=== PATIENT | male | born 1950 | race African-American/Black ===

== ENCOUNTER 2017-06-10 11:35 | Inpatient (IN) | payer MEDICARE, OTHER ==
[~2017-06-10] VITALS: Ht 177.8 cm; Wt 105.0 kg
[2017-06-10] VITALS (10 sets, daily range): BP systolic 113–193; BP diastolic 52–79; PULSE 100–123; RESP 15–30; TEMP 100.2–101.7; O2SAT 97–100
[~2017-06-10 11:35] MED LIST: DARV PO; GLUCTAB; IBUP-232 PO; METH750T2 PO; PHEN12.5; SULF1TAB47; Z.0.UNKNOWN
[2017-06-10] MEDS ORDERED: ACETAMINOPHEN 325 MG TAB PO ONE (12:00)
[2017-06-10] MEDS: SODIUM CHLOR 0.9% 1000 ML INJ 1,000 ML IV SCH ×5 (12:17→20:07)
--- NOTE | 2017-06-10 12:25 | PD ---
HPI Chief Complaint: Fever Time Seen by Provider: 11:44 Travel History International Travel<30 days: No Contact w/Intl Traveler<30days: No Traveled to known affect area: No History of Present Illness HPI 67-year-old male presents via [facility] with fever and complaint of "not feeling good " since this morning. Says he also felt a little weak. EMS reports a 102.0. EMS states the patient was walking around outside of his house and fell. Patient states he "fell out." Patient states he didn't faint or lose consciousness. Denies hitting his head. Denies neck pain or back pain. He denies headache. He denies chest pain, shortness breath, abdominal pain, vomiting, dysuria, change in stool. History of hypertension and diabetes. Denies anticoagulants. No known allergies. Has no other medical complaints. No other modifying factors or associated signs and symptoms. PFSH Past Medical History Hx Anticoagulant Therapy: No Arthritis: No Asthma: No Autoimmune Disease: No Heart Rhythm Problems: No Cardiovascular Problems: No High Cholesterol: No Chemotherapy: No Chest Pain: Yes Congestive Heart Failure: No COPD: No Cerebrovascular Accident: No Diabetes: Yes Diminished Hearing: No GERD: No Hiatal Hernia: No Hypertension: Yes Kidney Stones: No Respiratory: No Myocardial Infarction: No Renal Failure: No Seizures: No Thyroid Disease: No Ulcer: No ?: Not Past Surgical History Pacemaker: No Social History Alcohol Use: No Tobacco Use: Yes (1/2 PPD) Substance Use: No Allergies-Medications (Allergen,Severity, Reaction): Coded Allergies: No Known Allergies (Verified , 06/10/17) Reported Meds & Prescriptions Reported Meds & Active Scripts Active Reported Glipizide 10 Mg Tab 20 Mg PO DAILY Take 30 minutes before a meal Review of Systems Except as stated in HPI: all other systems reviewed are Neg Physical Exam Narrative GENERAL: Well-nourished, well-developed black male patient, in no acute distress ; febrile, ill-appearing SKIN: Warm and dry. No rash. HEAD: Atraumatic. Normocephalic. EYES: Pupils equal and round. No scleral icterus. No injection or drainage. No raccoon eyes. No orbital tenderness on palpation bilaterally. ENT: Mucosa pink and moist. No erythema or exudates. No uvular edema. No uvular , palatal, or tonsillar deviation. Airway patent. EARS: Bilateral pinnae and external canals appear within normal limits. Bilateral tympanic membranes without erythema, dullness or perforation. NECK: Trachea midline. No lymphadenopathy. CARDIOVASCULAR: Regular rate and rhythm. No murmur appreciated. RESPIRATORY: No accessory muscle use. Clear to auscultation. Breath sounds equal bilaterally. No retractions or tachypnea. GASTROINTESTINAL: Abdomen soft, non-tender, nondistended. Hepatic and splenic margins not palpable. Bowel sounds are active 4 quadrants. MUSCULOSKELETAL: No obvious deformities. No clubbing. No cyanosis. No edema. NEUROLOGICAL: Awake and alert. Oriented 3. No obvious cranial nerve deficits. Motor grossly within normal limits. Normal speech. No midline drift. Moves all extremities. 5/5 strength to all extremities. PSYCHIATRIC: Appropriate mood and affect; insight and judgment normal. Data Data Last Documented VS Vital Signs Date Time Temp Pulse Resp B/P (MAP) Pulse Ox O2 Delivery O2 Flow Rate FiO2 06/10/17 14:00 118 15 133/61 (85) 97 Room Air 06/10/17 12:00 101.7 Orders Orders Electrocardiogram (06/10/17 11:53) Complete Blood Count With Diff (06/10/17 11:53) Comprehensive Metabolic Panel (06/10/17 11:53) Lactic Acid Sepsis Protocol (06/10/17 11:53) Urinalysis - C+S If Indicated (06/10/17 11:53) Influenzae A/B Antigen (06/10/17 11:53) Blood Culture (06/10/17 11:53) Chest, Single Ap (06/10/17 11:53) Blood Glucose (06/10/17 11:53) Ecg Monitoring (06/10/17 11:53) Iv Access Insert/Monitor (06/10/17 11:53) Oximetry (06/10/17 11:53) Oxygen Administration (06/10/17 11:53) Prothrombin Time / Inr (Pt) (06/10/17 11:53) Act Partial Throm Time (Ptt) (06/10/17 11:53) Sodium Chlor 0.9% 1000 Ml Inj (Ns 1000 M (06/10/17 11:53) Magnesium (Mg) (06/10/17 11:53) Ckmb (Isoenzyme) Profile (06/10/17 11:53) Troponin I (06/10/17 11:53) Acetaminophen (Tylenol) (06/10/17 12:00) Ct Brain W/O Iv Contrast(Rout) (06/10/17 ) CKMB (06/10/17 12:10) CKMB% (06/10/17 12:10) Ct Facial Bones W/O Iv Cont (06/10/17 ) Vancomycin Inj (Vancomycin Inj) (06/10/17 13:15) Piperacil-Tazo 3.375 Gm Premix (Zosyn 3. (06/10/17 13:15) Ciprofloxacin 400 Mg Premix (Cipro 400 M (06/10/17 14:25) Admit Order (Ed Use Only) (06/10/17 14:29) Labs Laboratory Tests Test 06/10/17 12:10 06/10/17 12:16 White Blood Count 20.8 TH/MM3 Red Blood Count 5.15 MIL/MM3 Hemoglobin 16.0 GM/DL Hematocrit 47.7 % Mean Corpuscular Volume 92.6 FL Mean Corpuscular Hemoglobin 31.0 PG Mean Corpuscular Hemoglobin Concent 33.5 % Red Cell Distribution Width 13.8 % Platelet Count 124 TH/MM3 Mean Platelet Volume 10.7 FL Neutrophils (%) (Auto) 78.6 % Lymphocytes (%) (Auto) 9.9 % Monocytes (%) (Auto) 9.8 % Eosinophils (%) (Auto) 1.3 % Basophils (%) (Auto) 0.4 % Neutrophils # (Auto) 16.3 TH/MM3 Lymphocytes # (Auto) 2.1 TH/MM3 Monocytes # (Auto) 2.0 TH/MM3 Eosinophils # (Auto) 0.3 TH/MM3 Basophils # (Auto) 0.1 TH/MM3 CBC Comment DIFF FINAL Differential Comment Prothrombin Time 11.2 SEC Prothromb Time International Ratio 1.0 RATIO Activated Partial Thromboplast Time 25.3 SEC Blood Urea Nitrogen 15 MG/DL Creatinine 1.75 MG/DL Random Glucose 178 MG/DL Total Protein 7.2 GM/DL Albumin 3.4 GM/DL Calcium Level 9.2 MG/DL Magnesium Level 1.8 MG/DL Alkaline Phosphatase 60 U/L Aspartate Amino Transf (AST/SGOT) 12 U/L Alanine Aminotransferase (ALT/SGPT) 18 U/L Total Bilirubin 0.7 MG/DL Sodium Level 138 MEQ/L Potassium Level 3.3 MEQ/L Chloride Level 104 MEQ/L Carbon Dioxide Level 26.5 MEQ/L Anion Gap 8 MEQ/L Estimat Glomerular Filtration Rate 48 ML/MIN Total Creatine Kinase 211 U/L Creatine Kinase MB 2.4 NG/ML Troponin I LESS THAN 0.02 NG/ML Lactic Acid Level 2.8 mmol/L MDM Medical Decision Making Medical Screen Exam Complete: Yes Emergency Medical Condition: Yes Medical Record Reviewed: Yes Differential Diagnosis Sepsis, influenza, pneumonia Narrative Course 67-year-old male presents via [facility] after a fall and suspected sepsis. Patient' s temperature per EMS was 102.0. Patient is tachycardic. Patient has no complaints except for that he didn't feel well and felt weak when he woke up this morning. IV site obtained. Septic workup ordered. CT head and chest x- ray ordered. EKG with sinus tachycardia. Tylenol and normal saline bolus ordered. 1306: WBC 20.8. Platelet count 24. Coags unremarkable. Lactic acid 2.8. Negative for influenza. 1 g vancomycin and Zosyn 3.[address] head concludes: Last [address] 06/10/17 0000 Signed Impressions: Service Date/Time: May 12:19 - CONCLUSION: 1. No acute intracranial abnormality. 2. Opacification of the right maxillary sinus. There is concern for fracture the inferior aspect of the right orbit. CT imaging of the facial bones is warranted. Ramos Ortega MD CT facial bones ordered. 1326: Chest x-ray was no acute findings. Call placed to TERESA for patient to be admitted. 1430: I spoke with TERESA Givens; report given and patient will be admitted. Physician Communication Physician Communication TERESA Huerta Diagnosis Primary Impression: Sepsis Qualified Codes: A41.9 - Sepsis, unspecified organism Admitting Information Admitting Physician Requests: Admit Valerie Pitt Jun 10, 2017 12:25
[2017-06-10 12:31] LABS: AUTOMATED NEUTROPHIL # 16.3 TH/MM3 (1.8-7.7); BASOPHIL # 0.1 TH/MM3 (0-0.2); BASOPHIL % 0.4 % (0.0-2.0); EOSINOPHIL # 0.3 TH/MM3 (0-0.4); EOSINOPHIL % 1.3 % (0.0-4.0); HEMATOCRIT 47.7 % (39.0-51.0); HEMO FLAGS DIFF FINAL; LYMPH % 9.9 % (9.0-44.0); LYMPHOCYTE # 2.1 TH/MM3 (1.0-4.8); MEAN CELL VOLUME 92.6 FL (80.0-100.0); MEAN CORPUSCULAR HGB CONC 33.5 % (32.0-36.0); MONO % 9.8 % (0.0-8.0); NEUT % 78.6 % (16.0-70.0); PLATELET COUNT 124 TH/MM3 (150-450); RED BLOOD COUNT 5.15 MIL/MM3 (4.50-5.90); RED CELL DISTRIBUTION WIDTH 13.8 % (11.6-17.2); WHITE BLOOD COUNT 20.8 TH/MM3 (4.0-11.0)
[2017-06-10 12:44] LABS: PROTHROMBIN TIME - PATIENT 11.2 SEC (9.8-11.6)
[2017-06-10 12:46] LABS: ALT (GPT) 18 U/L (12-78); ANION GAP 8 MEQ/L (5-15); AST (GOT) 12 U/L (15-37); BICARBONATE 26.5 MEQ/L (21.0-32.0); BLOOD UREA NITROGEN 15 MG/DL (7-18); CHLORIDE 104 MEQ/L (98-107); GLOMERULAR FILTRATION RATE 48 ML/MIN (>89); MAGNESIUM 1.8 MG/DL (1.5-2.5); POTASSIUM 3.3 MEQ/L (3.5-5.1); SODIUM (NA) 138 MEQ/L (136-145)
[2017-06-10 12:47] LABS: APTT (PATIENT) 25.3 SEC (24.3-30.1)
[2017-06-10 12:51] LABS: ALKALINE PHOSPHATASE 60 U/L (45-117); CREATINE KINASE 211 U/L (39-308); TOTAL BILIRUBIN ADULT 0.7 MG/DL (0.2-1.0)
--- NOTE | 2017-06-10 12:59 | RADRPT ---
EXAM DATE/TIME: 06/10/2017 12:19 [facility] COMPARISON: No previous studies available for comparison. INDICATIONS : Trauma, fall. RADIATION DOSE: 48.66 CTDIvol (mGy) MEDICAL HISTORY : Hypertension. Diabetes mellitus type 2. SURGICAL HISTORY : None. ENCOUNTER: Initial ACUITY: 1 day PAIN SCALE: 0/10 LOCATION: cranial TECHNIQUE: Multiple contiguous axial images were obtained of the head. Using automated exposure control and adj ustment of the mA and/or kV according to patient size, radiation dose was kept as low as reasonably a chievable to obtain optimal diagnostic quality images. DICOM format image data is available electro nically for review and comparison. FINDINGS: CEREBRUM: The ventricles are normal for age. No evidence of midline shift, mass lesion, hemorrhage or acute in farction. No extra-axial fluid collections are seen. POSTERIOR FOSSA: The cerebellum and brainstem are intact. The 4th ventricle is midline. The cerebellopontine angle i s unremarkable. EXTRACRANIAL: The visualized portion of the orbits is intact. There is opacification of the right maxillary sinus. SKULL: The calvaria is intact. No evidence of skull fracture. The exam is concern for fracture the inferior aspect of the right orbit. CONCLUSION: 1. No acute intracranial abnormality. 2. Opacification of the right maxillary sinus. There is concern for fracture the inferior aspect of t he right orbit. CT imaging of the facial bones is warranted. Ramos Ortega MD on June 10, 2017 at 12:46 Board Certified Radiologist. This report was verified electronically.
[2017-06-10 13:05] LABS: CKMB 2.4 NG/ML (0.5-3.6)
--- NOTE | 2017-06-10 13:11 | RADRPT ---
EXAM DATE/TIME: 06/10/2017 12:55 [facility] COMPARISON: No previous studies available for comparison. INDICATIONS : Shortness of breath. MEDICAL HISTORY : Hypertension. Diabetes mellitus type II. Smoker. SURGICAL HISTORY : None. ENCOUNTER: Initial ACUITY: 1 day PAIN SCORE: 0/10 LOCATION: Bilateral chest FINDINGS: A single view of the chest demonstrates the lungs to be symmetrically aerated without evidence of mas s, infiltrate or effusion. The cardiomediastinal contours are unremarkable. Osseous structures are intact. CONCLUSION: No acute disease. Kwaku Vizcaino MD on June 10, 2017 at 13:09 Board Certified Radiologist. This report was verified electronically.
[2017-06-10] MEDS ORDERED: PIPERACIL-TAZO 3.375 GM PREMIX 50 ML IV ONE (13:15)
[2017-06-10] MEDS ORDERED: VANCOMYCIN INJ 1,000 MG in SODIUM CHLOR 0.9% 250 ML INJ 250 ML IV ONE (13:15)
[2017-06-10 14:24] LABS: LACTIC ACID GHOST NOT REPORTABLE
[2017-06-10] MEDS ORDERED: CIPROFLOXACIN 400 MG PREMIX 200 ML IV STA (14:25)
[2017-06-10] MEDS ORDERED: ONDANSETRON HCL 4 MG/2 ML VIAL IVP PRN (14:45)
[2017-06-10] MEDS ORDERED: BISACODYL 10 MG SUPP RECTAL PRN (14:45)
[2017-06-10] MEDS ORDERED: GLUCAGON 1 MG/ML VIAL OTHER PRN (14:45)
[2017-06-10] MEDS ORDERED: DEXTROSE 50% IN WATER 50 ML VIAL(D50) IV PUSH PRN (14:45)
[2017-06-10] MEDS ORDERED: SENNOSIDES 8.6 MG TAB PO PRN (14:45)
[2017-06-10] MEDS ORDERED: MORPHINE SULFATE 4 MG/ML INJ IV PUSH PRN (14:45)
[2017-06-10] MEDS ORDERED: NALOXONE HCL 0.4 MG/ML AMP IV PUSH PRN (14:45)
[2017-06-10] MEDS ORDERED: LACTULOSE SYRUP 20 GM/30 ML CUP PO PRN (14:45)
[2017-06-10] MEDS ORDERED: SODIUM CHLORIDE 0.9% FLUSH 10 ML FLUSH IV FLUSH PRN (14:45)
[2017-06-10] MEDS ORDERED: ACETAMINOPHEN 325 MG TAB PO PRN (14:45)
[2017-06-10] MEDS ORDERED: GLIP10TA6 PO (14:49)
--- NOTE | 2017-06-10 15:09 | RADRPT ---
EXAM DATE/TIME: 06/10/2017 14:20 [facility] COMPARISON: No previous studies available for comparison. INDICATIONS : Trauma, fall. RADIATION DOSE: 55.79 CTDIvol (mGy) MEDICAL HISTORY : Cardiovascular disease. Hypertension. Chronic obstructive pulmonary disease. SURGICAL HISTORY : None. ENCOUNTER: Initial ACUITY: 1 day PAIN SCORE: 0/10 LOCATION: facial TECHNIQUE: Volumetric scanning of the facial bones was performed. Using automated exposure control and adjustme nt of the mA and/or kV according to patient size, radiation dose was kept as low as reasonably achiev able to obtain optimal diagnostic quality images. DICOM format image data is available electronicall y for review and comparison. FINDINGS: ORBITS: The orbital and infraorbital osseous structures are intact. The retroconal structures have a normal configuration. No radiopaque foreign bodies are seen. NASAL BONE: The nasal bone and maxillary spine are intact ZYGOMATIC ARCHES: Symmetric without evidence of fracture. SINUSES: Near-complete opacification of the right maxillary sinus with diffuse thickening of the maxillary sin [place] suggesting chronic sinusitis. Bone erosion of the medial wall. NASAL CAVITY: The nasal septum is intact and midline. The lacrimal ducts are intact. SOFT TISSUES: Within normal limits. INTRACRANIAL: No intracranial air seen. CONCLUSION: 1. Severe opacification of the right maxillary sinus with thickening of the right maxillary sinus wal ls suggesting chronic sinus disease. Erosion of the medial wall of the right maxillary sinus. 2. No evidence of fracture. Brian Mendoza MD on June 10, 2017 at 15:03 Board Certified Radiologist. This report was verified electronically.
--- NOTE | 2017-06-10 15:56 | HHI.HP ---
[facility] [place] [facility] [place] Admission Diagnosis SEPSIS Diagnoses: Travel History International Travel<30 Days: No Contact w/Intl Traveler <30 Da: No Traveled to Known Affected Are: No Past Family Social History Allergies: Coded Allergies: No Known Allergies (Verified , 06/10/17) Physical Exam Result Diagram: 06/10/17 1210 06/10/17 1210 Caprini VTE Risk Assessment Caprini Risk Assessment Model Point Value = 1 Point Value = 2 Point Value = 3 Point Value = 5 Age 41-60 Minor surgery BMI > 25 kg/m2 Swollen legs Varicose veins or History of unexplained or recurrent spontaneous Oral contraceptives or hormone replacement Sepsis (< 1 month) Serious lung disease, including pneumonia (< 1 month) Abnormal pulmonary function Acute myocardial infarction Congestive heart failure (< 1 month) History of inflammatory bowel disease Medical patient at bed rest Age 61-74 Arthroscopic surgery Major open surgery (> 45 min) Laparoscopic surgery (> 45 min) Malignancy Confined to bed (> 72 hours) Immobilizing plaster cast Central venous access Age >= 75 History of VTE Family history of VTE Factor V Leiden Prothrombin [id number] Lupus anticoagulant Anticardiolipin antibodies Elevated serum homocysteine Heparin-induced thrombocytopenia Other congenital or acquired thrombophilia Stroke (< 1 month) Elective arthroplasty Hip, pelvis, or leg fracture Acute spinal cord injury (< 1 month) Prophylaxis Regimen Total Risk Factor Score Risk Level Prophylaxis Regimen 0-1 Low Early ambulation 2 Moderate Order ONE of the following: *Sequential Compression Device (SCD) *Heparin 5000 units SQ BID 3-4 Higher Order ONE of the following medications: *Heparin 5000 units SQ TID *Enoxaparin/Lovenox 40 mg SQ daily (WT < 150 kg, CrCl > 30 mL/min) *Enoxaparin/Lovenox 30 mg SQ daily (WT < 150 kg, CrCl > 10-29 mL/min) *Enoxaparin/Lovenox 30 mg SQ BID (WT < 150 kg, CrCl > 30 mL/min) AND/OR *Sequential Compression Device (SCD) 5 or more Highest Order ONE of the following medications: *Heparin 5000 units SQ TID (Preferred with Epidurals) *Enoxaparin/Lovenox 40 mg SQ daily (WT < 150 kg, CrCl > 30 mL/min) *Enoxaparin/Lovenox 30 mg SQ daily (WT < 150 kg, CrCl > 10-29 mL/min) *Enoxaparin/Lovenox 30 mg SQ BID (WT < 150 kg, CrCl > 30 mL/min) AND *Sequential Compression Device (SCD) Physician Certification Order for Inpatient Services The services are ordered in accordance with Medicare regulations or non- Medicare payer requirements, as applicable. In the case of services not specified as inpatient-only, they are appropriately provided as inpatient services in accordance with the 2-midnight benchmark. days is the estimated time the patient will need to remain in the hospital, assuming treatment plan goals are met and no additional complications. Rika Lantigua Jun 10, 2017 15:56 Bakari Winters MD Jun 10, 2017 16:15
[2017-06-10] MEDS ORDERED: POTASSIUM CHLORIDE 20 MEQ CONTROLLED RELEASE TAB PO ONE (16:00)
--- NOTE | 2017-06-10 16:18 | HHI.HP ---
HPI Service [facility] Hospitalists Primary Care Physician [facility] Admission Diagnosis SEPSIS Diagnoses: Chief Complaint: Fever Weakness Travel History International Travel<30 Days: No Contact w/Intl Traveler <30 Da: No Traveled to Known Affected Are: No Sepsis Criteria SIRS Criteria (2 or more): Temp > 100.9 or < 96.8, Heart rate over 90, WBC > 62912, < 4000 or > 10% bands Sepsis Criteria (SIRS+source): Infect source susp/known Severe Sepsis (+one): Lactate >2, Acute Oliguria/Renal Failure Criteria Outcome: Meets severe sepsis criteria History of Present Illness Written by Rika Lantigua PA-C acting as scribe for Dr. Winters on 06/10/17 at 16:16. This is a 67yo male with a PMHX significant for HTN and IDDM who presents to [facility] ED with complaints of fever and weakness. Patient reports sudden onset of "not feeling well" this morning with associated weakness and inability to walk resulting in fall. Patient denies any dizziness or lightheadedness prior to fall. He denies any loss of consciousness or injury to the head. Patient denies any fever or chills at home but EMS recorded a temperature of 102.0. Patient denies any recent illness, ill contacts or recent travel. He denies any cuts, bites or open sores. Patient denies any headache, runny nose or cough. Patient denies any recent change in medications. Patient denies any complaints of pain including no chest pain or abdominal pain. He denies any urinary urgency, frequency or dysuria. He denies any diarrhea. He denies any recent antibiotic use. Patient denies any bleeding. Patient denies any history of stroke or AR. In the ED, patient has temperature of 101.7, elevated white count of 20.8 and elevated lactic acid level of 2.8. He is tachycardiac with a HR of 112. Respiratory rate elevated at 30. Troponin was 0.02. Creatinine is elevated at 1.75. CXR shows no acute cardiopulmonary process. EKG with sinus tachycardia. CT head shows opacification of the right maxillary sinus and concern for fracture of the inferior aspect of the right orbit. Followup Facial CT shows severe opacification of the right maxillary sinus with thickening of the right maxillary sinus langford suggesting chronic sinus disease and erosion of the medial wall of the right maxillary sinus. No evidence of fracture. Review of Systems Except as stated in HPI: all other systems reviewed are Neg Past Family Social History Past Medical History HTN DM, insulin dependent Past Surgical History Patient denies any previous surgical history. Reported Medications Unknown blood pressure medication 80units of insulin, type unknown Glipizide 20mg po daily Allergies: Coded Allergies: No Known Allergies (Verified , 06/10/17) Active Ordered Medications Current Medications Medications (Trade) Dose Ordered Sig/Ishmael Route Start Time Stop Time Status Last Admin (D50w (Vial) Inj) 50 ml UNSCH PRN IV PUSH 06/10/17 14:45 (Glucagon Inj) 1 mg UNSCH PRN OTHER 06/10/17 14:45 (NovoLOG SUPPLEMENTAL SCALE) 1 ACHS SLIDING SCALE SQ 06/10/17 17:00 Sodium Chloride 1,000 ml @ 100 mls/hr Q10H IV 06/10/17 14:31 06/10/17 16:09 (NS Flush) 2 ml UNSCH PRN IV FLUSH 06/10/17 14:45 (NS Flush) 2 ml BID IV FLUSH 06/10/17 21:00 (Tylenol) 650 mg Q4H PRN PO 06/10/17 14:45 (Zofran Inj) 4 mg Q6H PRN IVP 06/10/17 14:45 (Tylenol) 650 mg Q6H PRN PO 06/10/17 14:45 ([place] 5-325 Mg) 1 tab Q4H PRN PO 06/10/17 14:45 ([place] 7.5-325 Mg) 1 tab Q4H PRN PO 06/10/17 14:45 (Morphine Inj) 1 mg Q3H PRN IV PUSH 06/10/17 14:45 (Narcan Inj) 0.4 mg UNSCH PRN IV PUSH 06/10/17 14:45 (Yumiko-Colace) 1 tab BID PO 06/10/17 21:00 (Senokot) 17.2 mg Q12H PRN PO 06/10/17 14:45 (Dulcolax Supp) 10 mg DAILY PRN RECTAL 06/10/17 14:45 (Lactulose Liq) 30 ml DAILY PRN PO 06/10/17 14:45 Family History Patient denies any FMHX of CVA or AR Social History Patient reports tobacco use of 1/2 ppd. Patient denies any alcohol consumption. Patient denies any illicit drug use. Physical Exam Vital Signs Vital Signs Date Time Temp Pulse Resp B/P (MAP) Pulse Ox O2 Delivery O2 Flow Rate FiO2 06/10/17 15:00 112 16 113/52 (72) 98 Room Air 06/10/17 14:00 118 15 133/61 (85) 97 Room Air 06/10/17 13:00 116 15 131/62 (85) 97 Room Air 06/10/17 12:17 100 Room Air 06/10/17 12:15 138/65 (89) Room Air 06/10/17 12:00 96 Room Air 06/10/17 12:00 101.7 123 30 193/79 (117) 98 Physical Exam GENERAL: This is a well-nourished, well-developed patient, in no apparent distress. Awake and alert. SKIN: Warm and dry. (+)bilateral superficial abrasions on both knees L>R. Hyperpigmented linear old excoriations on anterior lower legs. HEAD: Atraumatic. Normocephalic. No temporal or scalp tenderness. No facial tenderness to palpation. EYES: Pupils equal round and reactive. Extraocular motions intact. No scleral icterus. No injection or drainage. ENT: Nose without bleeding, purulent drainage or septal hematoma. Throat without erythema, tonsillar hypertrophy or exudate. Uvula midline. Airway patent. Right TM unremarkable. Unable to visualize left TM due to cerumen NECK: Trachea midline. No JVD or lymphadenopathy. Supple, nontender, no meningeal signs. CARDIOVASCULAR: Distant heart sounds without murmurs, gallops, or rubs. RESPIRATORY: Clear to auscultation. Breath sounds equal bilaterally. No wheezes , rales, or rhonchi. GASTROINTESTINAL: Abdomen protuberant, soft, non-tender, nondistended. No guarding. MUSCULOSKELETAL: Extremities without clubbing, cyanosis, or edema. No joint tenderness, effusion, or edema noted. No calf tenderness. NEUROLOGICAL: Awake and alert. Able to move all extremities. Nonfocal. Normal speech Laboratory Laboratory Tests Test 06/10/17 12:10 06/10/17 12:16 White Blood Count 20.8 Red Blood Count 5.15 Hemoglobin 16.0 Hematocrit 47.7 Mean Corpuscular Volume 92.6 Mean Corpuscular Hemoglobin 31.0 Mean Corpuscular Hemoglobin Concent 33.5 Red Cell Distribution Width 13.8 Platelet Count 124 Mean Platelet Volume 10.7 Neutrophils (%) (Auto) 78.6 Lymphocytes (%) (Auto) 9.9 Monocytes (%) (Auto) 9.8 Eosinophils (%) (Auto) 1.3 Basophils (%) (Auto) 0.4 Neutrophils # (Auto) 16.3 Lymphocytes # (Auto) 2.1 Monocytes # (Auto) 2.0 Eosinophils # (Auto) 0.3 Basophils # (Auto) 0.1 CBC Comment DIFF FINAL Differential Comment Prothrombin Time 11.2 Prothromb Time International Ratio 1.0 Activated Partial Thromboplast Time 25.3 Blood Urea Nitrogen 15 Creatinine 1.75 Random Glucose 178 Total Protein 7.2 Albumin 3.4 Calcium Level 9.2 Magnesium Level 1.8 Alkaline Phosphatase 60 Aspartate Amino Transf (AST/SGOT) 12 Alanine Aminotransferase (ALT/SGPT) 18 Total Bilirubin 0.7 Sodium Level 138 Potassium Level 3.3 Chloride Level 104 Carbon Dioxide Level 26.5 Anion Gap 8 Estimat Glomerular Filtration Rate 48 Total Creatine Kinase 211 Creatine Kinase MB 2.4 Troponin I LESS THAN 0.02 Lactic Acid Level 2.8 Date/Time Source Procedure Growth Status 06/10/17 12:15 Blood Peripheral Aerobic Blood Culture Pending Received 06/10/17 12:15 Blood Peripheral Anaerobic Blood Culture Pending Received 06/10/17 12:35 Nasal Aspirate Influenza Types A,B Antigen (MINOO) - Final NEGATIVE FOR FLU A AND B ANTIGEN.... Complete Result Diagram: 06/10/17 1210 06/10/17 1210 Imaging Last Impressions Chest X-Ray 06/10/17 1153 Signed Impressions: Service Date/Time: May 12:55 - CONCLUSION: No acute disease. Kwaku Vizcaino MD Maxillofacial CT 06/10/17 0000 Signed Impressions: Service Date/Time: May 14:20 - CONCLUSION: 1. Severe opacification of the right maxillary sinus with thickening of the right maxillary sinus langford suggesting chronic sinus disease. Erosion of the medial wall of the right maxillary sinus. 2. No evidence of fracture. Brian Mendoza MD Head CT 06/10/17 0000 Signed Impressions: Service Date/Time: May 12:19 - CONCLUSION: 1. No acute intracranial abnormality. 2. Opacification of the right maxillary sinus. There is concern for fracture the inferior aspect of the right orbit. CT imaging of the facial bones is warranted. Ramos Ortega MD Caprini VTE Risk Assessment Caprini VTE Risk Assessment: Mod/High Risk (score >= 2) Caprini Risk Assessment Model Point Value = 1 Point Value = 2 Point Value = 3 Point Value = 5 Age 41-60 Minor surgery BMI > 25 kg/m2 Swollen legs Varicose veins or History of unexplained or recurrent spontaneous Oral contraceptives or hormone replacement Sepsis (< 1 month) Serious lung disease, including pneumonia (< 1 month) Abnormal pulmonary function Acute myocardial infarction Congestive heart failure (< 1 month) History of inflammatory bowel disease Medical patient at bed rest Age 61-74 Arthroscopic surgery Major open surgery (> 45 min) Laparoscopic surgery (> 45 min) Malignancy Confined to bed (> 72 hours) Immobilizing plaster cast Central venous access Age >= 75 History of VTE Family history of VTE Factor V Leiden Prothrombin [id number] Lupus anticoagulant Anticardiolipin antibodies Elevated serum homocysteine Heparin-induced thrombocytopenia Other congenital or acquired thrombophilia Stroke (< 1 month) Elective arthroplasty Hip, pelvis, or leg fracture Acute spinal cord injury (< 1 month) Prophylaxis Regimen Total Risk Factor Score Risk Level Prophylaxis Regimen 0-1 Low Early ambulation 2 Moderate Order ONE of the following: *Sequential Compression Device (SCD) *Heparin 5000 units SQ BID 3-4 Higher Order ONE of the following medications: *Heparin 5000 units SQ TID *Enoxaparin/Lovenox 40 mg SQ daily (WT < 150 kg, CrCl > 30 mL/min) *Enoxaparin/Lovenox 30 mg SQ daily (WT < 150 kg, CrCl > 10-29 mL/min) *Enoxaparin/Lovenox 30 mg SQ BID (WT < 150 kg, CrCl > 30 mL/min) AND/OR *Sequential Compression Device (SCD) 5 or more Highest Order ONE of the following medications: *Heparin 5000 units SQ TID (Preferred with Epidurals) *Enoxaparin/Lovenox 40 mg SQ daily (WT < 150 kg, CrCl > 30 mL/min) *Enoxaparin/Lovenox 30 mg SQ daily (WT < 150 kg, CrCl > 10-29 mL/min) *Enoxaparin/Lovenox 30 mg SQ BID (WT < 150 kg, CrCl > 30 mL/min) AND *Sequential Compression Device (SCD) Assessment and Plan Problem List: (1) Sepsis ICD Code: A41.9 - Sepsis, unspecified organism Status: Acute Assessment and Plan 67yo male with a PMHX significant for HTN and IDDM who presents to [facility] ED with complaints of fever and weakness. Patient reports sudden onset of "not feeling well" this morning with associated weakness and inability to walk resulting in fall. Patient denies any dizziness or lightheadedness prior to fall. He denies any loss of consciousness or injury to the head. Patient denies any fever or chills at home but EMS recorded a temperature of 102.0. Patient denies any recent illness, ill contacts or recent travel. He denies any cuts, bites or open sores. Patient denies any headache, runny nose or cough. Patient denies any recent change in medications. Patient denies any complaints of pain including no chest pain or abdominal pain. He denies any urinary urgency, frequency or dysuria. He denies any diarrhea. He denies any recent antibiotic use. Patient denies any bleeding. Patient denies any history of stroke or AR. In the ED, patient has temperature of 101.7, elevated white count of 20.8 and elevated lactic acid level of 2.8. He is tachycardic with a HR of 112. Troponin was 0.02. Creatinine is elevated at 1.75. CXR shows no acute cardiopulmonary process. EKG with sinus tachycardia. CT head shows opacification of the right maxillary sinus and concern for fracture of the inferior aspect of the right orbit. Followup Facial CT shows severe opacification of the right maxillary sinus with thickening of the right maxillary sinus langford suggesting chronic sinus disease and erosion of the medial wall of the right maxillary sinus. No evidence of fracture. Fever of uncertain etiology Patient meets severe sepsis criteria with elevated white count of 20.8, temperature of 101.7, elevated lactic acid level of 2.8, tachycardic with HR 112 , elevated RR 30 and renal failure with creatinine of 1.75 Weakness, difficulty walking, s/p fall at home - Patient started on IV antibiotics with Vancomycin and Zosyn in the ED. Start IV Cipro and ct Vancomycin. Pharmacy to dose Vancomycin. 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 - Followup Facial CT personally reviewed and shows severe opacification of the right maxillary sinus with thickening of the right maxillary sinus langford suggesting chronic sinus disease and erosion of the medial wall of the right maxillary sinus. No evidence of fracture. - no obvious source of infection pending UA - supportive care - follow up on blood culture results - follow up UA - continue IVF - continuous cardiac monitoring - supplemental oxygen as needed - Neuro checks Q4 - fall precautions - PT eval/tx - repeat CBC in am - repeat lactic acid per sepsis protocol ARON on suspected CKD 3 - patients baseline creatinine unknown - last Cr in system 03/06/16 1.97 - avoid nephrotoxic agents - IVF - monitor I&Os - monitor kidney function HTN - BP elevated at ED presentation but now improved - requested ED nurse complete medical reconciliation and will continue home antihypertensive once med rec updated - Hydralazine and Clonidine prn with parameters - monitor BP DM, insulin dependent - requested ED nurse complete med rec - continue patient on home Glipizide 20mg daily - accuchecks - ISS - heart healthy diabetic diet Hypokalemia - repletion ordered - am labs to monitor response DVT prophylaxis - Bilateral SCD/AMY hose and SQ heparin Discussed Condition With ED physician, ED MEDICAL HEALTH RESEARCHER, patient Physician Certification 2 Midnight Certification Type: Admission for Inpatient Services Order for Inpatient Services The services are ordered in accordance with Medicare regulations or non- Medicare payer requirements, as applicable. In the case of services not specified as inpatient-only, they are appropriately provided as inpatient services in accordance with the 2-midnight benchmark. Estimated LOS (days): 3 3 days is the estimated time the patient will need to remain in the hospital, assuming treatment plan goals are met and no additional complications. Post-Hospital Plan: Not yet determined Problem Qualifiers (1) Sepsis: Qualified Codes: A41.9 - Sepsis, unspecified organism [place],Rika PA Jun 10, 2017 16:18 Bakari Winters MD Jun 10, 2017 16:23
[2017-06-10] MEDS ORDERED: hydrALAZINE HCL 20 MG/ML VIAL IV PUSH PRN (16:45)
[2017-06-10] MEDS ORDERED: Vancomycin Consult Pharmacy 1 EA OTHER SCH (16:45)
[2017-06-10] MEDS ORDERED: Custom Consult Pharmacy 1 EA OTHER SCH (16:45)
[2017-06-10] MEDS: INSULIN ASPART SUPPLEMENTAL SCALE SQ SCH ×2 (17:49→20:33)
[2017-06-10] MEDS: DOCUSATE SODIUM 50 MG/SENNA 8.6 MG TAB PO SCH (20:07)
[2017-06-10] MEDS: SODIUM CHLORIDE 0.9% FLUSH 10 ML FLUSH IV FLUSH SCH (20:07)
[2017-06-10 23:01] LABS: BACTERIA, URINE OCC /hpf; BLOOD, URINE SMALL (NEG); GLUCOSE,URINE 70 mg/dL (NEG); KETONE, URINE NEG (NEG); MUCUS URINE FEW /lpf (OCC); NITRITE,URINE NEG (NEG); PH, URINE 6.5 (5.0-8.5); RENAL EPITHELIAL CELLS <1 /hpf; SQUAMOUS EPITHELIAL CELL URINE 14 /hpf (0-5); TRANSITIONAL EPI CELLS, URINE <1 /hpf; URINE COLOR YELLOW (YELLW/STRAW)
[2017-06-10 23:02] LABS: COMMENT (UR) CATH-CULTURE IND; CULTURE IF INDICATED CATH CULTURE IND
[2017-06-11] VITALS (8 sets, daily range): BP systolic 133–172; BP diastolic 61–79; PULSE 103–119; RESP 16–20; TEMP 99.4–102; O2SAT 96–98
[2017-06-11] MEDS: ACETAMINOPHEN 325 MG TAB PO PRN ×3 (00:58→20:50)
[2017-06-11] MEDS: HEPARIN SODIUM - SQ 10,000 UNITS/ML VIAL SQ SCH ×3 (00:59→20:52)
[2017-06-11] MEDS: CIPROFLOXACIN 400 MG PREMIX 200 ML IV SCH ×2 (02:12→17:08)
[2017-06-11 06:08] LABS: BASOPHIL # 0.1 TH/MM3 (0-0.2); BASOPHIL % 0.5 % (0.0-2.0); EOSINOPHIL # 0.1 TH/MM3 (0-0.4); EOSINOPHIL % 0.2 % (0.0-4.0); LYMPHOCYTE # 1.6 TH/MM3 (1.0-4.8); MEAN CELL VOLUME 93.7 FL (80.0-100.0); MEAN CORPUSCULAR HEMOGLOBIN 31.4 PG (27.0-34.0); MEAN CORPUSCULAR HGB CONC 33.5 % (32.0-36.0); MONO % 8.1 % (0.0-8.0); NEUT % 83.2 % (16.0-70.0); PLATELET COUNT 89 TH/MM3 (150-450); RED BLOOD COUNT 4.91 MIL/MM3 (4.50-5.90); RED CELL DISTRIBUTION WIDTH 13.7 % (11.6-17.2); WHITE BLOOD COUNT 20.5 TH/MM3 (4.0-11.0)
[2017-06-11 06:30] LABS: BICARBONATE 23.8 MEQ/L (21.0-32.0); POTASSIUM 3.3 MEQ/L (3.5-5.1)
[2017-06-11 06:40] LABS: HEMO FLAGS AUTO DIFF
[2017-06-11 07:21] LABS: CKMB 3.5 NG/ML (0.5-3.6)
[2017-06-11] MEDS: VANCOMYCIN INJ 1,300 MG in SODIUM CHLORID 0.9% 500 ML INJ 500 ML IV SCH ×2 (07:39→23:31)
[2017-06-11 08:18] LABS: PLATELET ESTIMATE SMEAR LOW (NORMAL); PLATELET MORPHOLOGY GIANT (NORMAL); SCAN/DIFF AUTO DIFF CONFIRMED
[2017-06-11] MEDS: glipiZIDE 10 MG TAB PO SCH (09:38)
[2017-06-11] MEDS: SODIUM CHLORIDE 0.9% FLUSH 10 ML FLUSH IV FLUSH SCH ×2 (09:38→20:51)
[2017-06-11] MEDS: DOCUSATE SODIUM 50 MG/SENNA 8.6 MG TAB PO SCH ×3 (09:38→20:50)
[2017-06-11] MEDS: SODIUM CHLOR 0.9% 1000 ML INJ 1,000 ML IV SCH ×2 (09:40→21:39)
[2017-06-11] MEDS: INSULIN ASPART SUPPLEMENTAL SCALE SQ SCH ×4 (09:44→20:51)
[2017-06-11] MEDS ORDERED: POTASSIUM CHLORIDE 10 MEQ CONTROLLED RELEASE TAB PO ONE (10:00)
--- NOTE | 2017-06-11 10:30 | EKG ---
Date Performed: 06/10/2017 Time Performed: 12:00:22 PTAGE: 67 years EKG: SINUS TACHYCARDIA PATTERN CONSISTENT WITH PULMONARY DISEASE INFERIOR MYOCARDIAL INFARCTION ABNORMAL ECG Compared to PREVIOUS TRACING criteria of inferior infarct are now present with left axis deviation, rate is also faster PREVIOUS TRACIN06/06/2004 01.49 DOCTOR: Davi Crouch Interpretating Date/Time 06/11/2017 10:26:51
--- NOTE | 2017-06-11 11:58 | HHI.PR ---
Subjective Remarks Follow-up sepsis. Patient has no complaints denies chest pain, shortness of breath, cough, UTI symptoms and diarrhea. Still having intermittent fever. Discussed with RN to obtain medication list from [place] today. Objective Vitals Vital Signs Date Time Temp Pulse Resp B/P (MAP) Pulse Ox O2 Delivery O2 Flow Rate FiO2 06/11/17 08:00 99.4 105 18 133/61 (85) 97 06/11/17 02:24 97 06/11/17 02:16 101.4 06/11/17 00:00 102.0 114 20 136/64 (88) 96 06/10/17 20:00 100.2 106 20 153/75 (101) 97 06/10/17 18:45 102 18 125/69 (87) 98 06/10/17 17:00 100 15 133/56 (81) Room Air 06/10/17 16:00 121 15 147/68 (94) 97 Room Air 06/10/17 15:00 112 16 113/52 (72) 98 Room Air 06/10/17 14:00 118 15 133/61 (85) 97 Room Air 06/10/17 13:00 116 15 131/62 (85) 97 Room Air 06/10/17 12:17 100 Room Air 06/10/17 12:15 138/65 (89) Room Air 06/10/17 12:00 96 Room Air 06/10/17 12:00 101.7 123 30 193/79 (117) 98 I/O 06/10/17 06/10/17 06/10/17 06/11/17 06/11/17 06/11/17 07:00 15:00 23:00 07:00 15:00 23:00 Intake Total 1000 ml 550 ml 200 ml 1000 ml Output Total 400 ml Balance 1000 ml 550 ml -200 ml 1000 ml Intake IV Total 1000 ml 550 ml 200 ml 1000 ml Output Urine Total 400 ml Result Diagram: 06/11/17 0505 06/11/17 0505 Imaging Last Impressions Chest X-Ray 06/10/17 1153 Signed Impressions: Service Date/Time: May 12:55 - CONCLUSION: No acute disease. Kwaku Vizcaino MD Maxillofacial CT 06/10/17 0000 Signed Impressions: Service Date/Time: May 14:20 - CONCLUSION: 1. Severe opacification of the right maxillary sinus with thickening of the right maxillary sinus langford suggesting chronic sinus disease. Erosion of the medial wall of the right maxillary sinus. 2. No evidence of fracture. Brian Mendoza MD Head CT 06/10/17 0000 Signed Impressions: Service Date/Time: May 12:19 - CONCLUSION: 1. No acute intracranial abnormality. 2. Opacification of the right maxillary sinus. There is concern for fracture the inferior aspect of the right orbit. CT imaging of the facial bones is warranted. Ramos Ortega MD Objective Remarks GENERAL: This is a well-nourished, well-developed patient, in no apparent distress. Awake and alert. SKIN: Warm and dry. (+)bilateral superficial abrasions on both knees L>R. Hyperpigmented linear old excoriations on anterior lower legs. NECK: Trachea midline. No JVD or lymphadenopathy. Supple, nontender, no meningeal signs. CARDIOVASCULAR: Distant heart sounds without murmurs, gallops, or rubs. RESPIRATORY: Clear to auscultation. Breath sounds equal bilaterally. No wheezes , rales, or rhonchi. GASTROINTESTINAL: Abdomen protuberant, soft, non-tender, nondistended. No guarding. MUSCULOSKELETAL: Extremities without clubbing, cyanosis, or edema. No joint tenderness, effusion, or edema noted. No calf tenderness. NEUROLOGICAL: Awake and alert. Able to move all extremities. Nonfocal. Normal speech Procedures none A/P Problem List: (1) Sepsis ICD Code: A41.9 - Sepsis, unspecified organism Status: Acute Assessment and Plan 67yo male with a PMHX significant for HTN and IDDM who presents to [facility] ED with complaints of fever and weakness. Severe sepsis criteria with elevated white count of 20.8, temperature of 101.7, elevated lactic acid level of 2.8, tachycardic with HR 112, elevated RR 30 and renal failure with creatinine of 1.75 UTI Weakness, difficulty walking, s/p fall at home - Patient started on IV antibiotics with Vancomycin and Zosyn in the ED. Ct IV Cipro and Vancomycin. Pharmacy to dose Vancomycin. 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 - Followup Facial CT personally reviewed and shows severe opacification of the right maxillary sinus with thickening of the right maxillary sinus langford suggesting chronic sinus disease and erosion of the medial wall of the right maxillary sinus. No evidence of fracture. - supportive care - follow up on blood and urine culture results - continue IVF - continuous cardiac monitoring - supplemental oxygen as needed - Neuro checks Q4 - fall precautions - PT eval/tx ARON on suspected CKD 3 - patients baseline creatinine unknown - last Cr in system 03/06/16 1.97 - avoid nephrotoxic agents - IVF - monitor I&Os - monitor kidney function specially on vancomycin HTN - BP elevated at ED presentation but now improved - requested ED nurse complete medical reconciliation and will continue home antihypertensive once med rec updated - Hydralazine and Clonidine prn with parameters - monitor BP DM, insulin dependent - requested ED nurse complete med rec. Will start Levemir 40 units daily and adjust accordingly - continue patient on home Glipizide 20mg daily - accuchecks - ISS - heart healthy diabetic diet Hypokalemia - repletion ordered - am labs to monitor response DVT prophylaxis - Bilateral SCD/AMY hose and SQ heparin Discharge Planning Not stable for discharge Problem Qualifiers (1) Sepsis: Qualified Codes: A41.9 - Sepsis, unspecified organism Bakari Winters MD Jun 11, 2017 11:58
[2017-06-11] MEDS: cloNIDine HCL 0.1 MG TAB PO PRN (12:00)
[2017-06-11] MEDS ORDERED: INSULIN DETEMIR 100 UNITS/ML VIAL SQ ONE (20:00)
[2017-06-12] VITALS: BP 142/64; PULSE 105; RESP 18; TEMP 97.5; O2SAT 97
[2017-06-12] MEDS: CIPROFLOXACIN 400 MG PREMIX 200 ML IV SCH ×2 (03:56→17:48)
[2017-06-12 04:00] VITALS: BP 162/77; PULSE 102; RESP 18; TEMP 97.5; O2SAT 97
[2017-06-12] MEDS: SODIUM CHLOR 0.9% 1000 ML INJ 1,000 ML IV SCH ×2 (06:31→16:31)
[2017-06-12] MEDS ORDERED: INSULIN DETEMIR 100 UNITS/ML VIAL SQ SCH (07:00)
[2017-06-12 07:01] LABS: AUTOMATED NEUTROPHIL # 13.3 TH/MM3 (1.8-7.7); BASOPHIL % 0.3 % (0.0-2.0); EOSINOPHIL # 0.1 TH/MM3 (0-0.4); EOSINOPHIL % 0.8 % (0.0-4.0); HEMATOCRIT 42.1 % (39.0-51.0); LYMPH % 7.9 % (9.0-44.0); LYMPHOCYTE # 1.3 TH/MM3 (1.0-4.8); MEAN CELL VOLUME 94.8 FL (80.0-100.0); MEAN CORPUSCULAR HEMOGLOBIN 31.4 PG (27.0-34.0); MEAN CORPUSCULAR HGB CONC 33.1 % (32.0-36.0); MONO % 7.9 % (0.0-8.0); NEUT % 83.1 % (16.0-70.0); PLATELET COUNT 95 TH/MM3 (150-450); RED BLOOD COUNT 4.44 MIL/MM3 (4.50-5.90); RED CELL DISTRIBUTION WIDTH 13.8 % (11.6-17.2)
[2017-06-12 07:03] LABS: HEMO FLAGS AUTO DIFF
[2017-06-12 07:15] LABS: MAGNESIUM 1.7 MG/DL (1.5-2.5); POTASSIUM 3.5 MEQ/L (3.5-5.1)
[2017-06-12 07:33] LABS: CKMB 3.9 NG/ML (0.5-3.6)
[2017-06-12 08:00] VITALS: BP 134/66; PULSE 104; RESP 18; TEMP 99.5; O2SAT 98
[2017-06-12] MEDS: DOCUSATE SODIUM 50 MG/SENNA 8.6 MG TAB PO SCH ×2 (08:29→20:06)
[2017-06-12] MEDS: glipiZIDE 10 MG TAB PO SCH (08:29)
[2017-06-12] MEDS: INSULIN ASPART SUPPLEMENTAL SCALE SQ SCH ×4 (08:30→20:19)
[2017-06-12] MEDS: HEPARIN SODIUM - SQ 10,000 UNITS/ML VIAL SQ SCH ×2 (08:30→20:05)
[2017-06-12] MEDS: SODIUM CHLORIDE 0.9% FLUSH 10 ML FLUSH IV FLUSH SCH ×2 (08:31→20:06)
[2017-06-12 09:22] LABS: PLATELET ESTIMATE SMEAR LOW (NORMAL); PLATELET MORPHOLOGY ENLARGED (NORMAL); SCAN/DIFF AUTO DIFF CONFIRMED
--- NOTE | 2017-06-12 11:08 | HHI.PR ---
Subjective Remarks Follow-up UTI. States he is "so-so'" still no bowel movement Objective Vitals Vital Signs Date Time Temp Pulse Resp B/P (MAP) Pulse Ox O2 Delivery O2 Flow Rate FiO2 06/12/17 08:00 99.5 104 18 134/66 (88) 98 06/12/17 04:00 97.5 102 18 162/77 (105) 97 06/12/17 00:00 97.5 105 18 142/64 (90) 97 06/11/17 21:00 117 06/11/17 20:00 101.4 119 18 146/76 (99) 98 06/11/17 14:00 103 06/11/17 12:00 100.0 110 16 172/79 (110) 96 I/O 06/11/17 06/11/17 06/11/17 06/12/17 06/12/17 06/12/17 07:00 15:00 23:00 07:00 15:00 23:00 Intake Total 200 ml 1000 ml 700 ml Output Total 400 ml 975 ml Balance -200 ml 1000 ml -275 ml Intake IV Total 200 ml 1000 ml 700 ml Output Urine Total 400 ml 975 ml Result Diagram: 06/12/17 0545 06/12/17 0545 Objective Remarks GENERAL: This is a well-nourished, well-developed patient, in no apparent distress. Awake and alert. SKIN: Warm and dry. (+)bilateral superficial abrasions on both knees L>R. Hyperpigmented linear old excoriations on anterior lower legs. NECK: Trachea midline. No JVD or lymphadenopathy. Supple, nontender, no meningeal signs. CARDIOVASCULAR: Distant heart sounds without murmurs, gallops, or rubs. RESPIRATORY: Clear to auscultation. Breath sounds equal bilaterally. No wheezes , rales, or rhonchi. GASTROINTESTINAL: Abdomen protuberant, soft, non-tender, nondistended. No guarding. MUSCULOSKELETAL: Extremities without clubbing, cyanosis, or edema. No calf tenderness. NEUROLOGICAL: Awake and alert. Able to move all extremities. Nonfocal. Normal speech Procedures none A/P Problem List: (1) Sepsis ICD Code: A41.9 - Sepsis, unspecified organism Status: Acute Assessment and Plan 67yo male with a PMHX significant for HTN and IDDM who presents to [facility] ED with complaints of fever and weakness. Severe sepsis criteria with elevated white count of 20.8, temperature of 101.7, elevated lactic acid level of 2.8, tachycardic with HR 112, elevated RR 30 and renal failure with creatinine of 1.75. Improving fever curve UTI. Urine culture with yeast Weakness, difficulty walking, s/p fall at home - Patient started on IV antibiotics with Vancomycin and Zosyn in the ED. Ct IV Cipro and discontinue Vancomycin. 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 - Followup Facial CT personally reviewed and shows severe opacification of the right maxillary sinus with thickening of the right maxillary sinus langford suggesting chronic sinus disease and erosion of the medial wall of the right maxillary sinus. No evidence of fracture. - supportive care - follow up on blood and urine culture results - continue IVF - continuous cardiac monitoring - supplemental oxygen as needed - Neuro checks Q4 - fall precautions - PT eval/tx ARON on suspected CKD 3 - last Cr in system 03/06/16 1.97 - avoid nephrotoxic agents - IVF - monitor I&Os - monitor kidney function HTN - BP elevated at ED presentation but now improved - requested ED nurse complete medical reconciliation and will continue home antihypertensive once med rec updated - Hydralazine and Clonidine prn with parameters - monitor BP DM, insulin dependent. Uncontrolled - requested ED nurse complete med rec. Adjust Levemir to 44 units daily - continue patient on home Glipizide 20mg daily - accuchecks - ISS - heart healthy diabetic diet Hypokalemia - repletion ordered - am labs to monitor response Constipation. Yumiko-Colace has been ordered DVT prophylaxis - Bilateral SCD/AMY hose and SQ heparin Discharge Planning Not stable for discharge Problem Qualifiers (1) Sepsis: Qualified Codes: A41.9 - Sepsis, unspecified organism Bakari Winters MD Jun 12, 2017 11:08
[2017-06-12 12:00] VITALS: BP 146/64; PULSE 112; RESP 18; TEMP 99.9; O2SAT 97
[2017-06-12] MEDS ORDERED: FLUCONAZOLE 200 MG IV SCH (13:00)
[2017-06-12] MEDS: FLUCONAZOLE/NACL 200 MG/100 ML IV SCH (14:28)
[2017-06-12 16:00] VITALS: BP 139/74; PULSE 119; RESP 20; TEMP 99.7; O2SAT 98
[2017-06-12] MEDS ORDERED: PHARMACY ORDERED LAB ONE (17:45)
[2017-06-12] MEDS: ACETAMINOPHEN 325 MG TAB PO PRN (20:06)
[2017-06-12 20:24] VITALS: BP 169/78; PULSE 107; RESP 17; TEMP 101.6; O2SAT 97
[2017-06-13] VITALS (8 sets, daily range): BP systolic 144–183; BP diastolic 67–88; PULSE 86–100; RESP 17–22; TEMP 96.9–101; O2SAT 95–99
[2017-06-13] MEDS: cloNIDine HCL 0.1 MG TAB PO PRN (04:11)
[2017-06-13] MEDS: CIPROFLOXACIN 400 MG PREMIX 200 ML IV SCH ×2 (04:11→16:00)
[2017-06-13 07:59] LABS: AUTOMATED NEUTROPHIL # 11.3 TH/MM3 (1.8-7.7); BASOPHIL % 0.3 % (0.0-2.0); EOSINOPHIL # 0.2 TH/MM3 (0-0.4); EOSINOPHIL % 1.3 % (0.0-4.0); HEMATOCRIT 39.7 % (39.0-51.0); HEMO FLAGS DIFF FINAL; LYMPH % 8.9 % (9.0-44.0); LYMPHOCYTE # 1.3 TH/MM3 (1.0-4.8); MEAN CELL VOLUME 93.3 FL (80.0-100.0); MEAN CORPUSCULAR HEMOGLOBIN 30.8 PG (27.0-34.0); MEAN CORPUSCULAR HGB CONC 33.1 % (32.0-36.0); MONO % 9.9 % (0.0-8.0); NEUT % 79.6 % (16.0-70.0); PLATELET COUNT 124 TH/MM3 (150-450); RED BLOOD COUNT 4.25 MIL/MM3 (4.50-5.90); RED CELL DISTRIBUTION WIDTH 13.4 % (11.6-17.2); WHITE BLOOD COUNT 14.3 TH/MM3 (4.0-11.0)
[2017-06-13] MEDS: INSULIN ASPART SUPPLEMENTAL SCALE SQ SCH ×4 (08:00→21:00)
[2017-06-13 08:30] LABS: POTASSIUM 3.5 MEQ/L (3.5-5.1)
[2017-06-13] MEDS: SODIUM CHLORIDE 0.9% FLUSH 10 ML FLUSH IV FLUSH SCH ×2 (09:00→21:00)
[2017-06-13] MEDS: INSULIN DETEMIR 100 UNITS/ML VIAL SQ SCH (09:02)
[2017-06-13] MEDS: DOCUSATE SODIUM 50 MG/SENNA 8.6 MG TAB PO SCH ×2 (09:03→21:18)
[2017-06-13] MEDS: HEPARIN SODIUM - SQ 10,000 UNITS/ML VIAL SQ SCH ×2 (09:03→21:19)
[2017-06-13] MEDS: glipiZIDE 10 MG TAB PO SCH (09:03)
[2017-06-13] MEDS: LISINOPRIL 5 MG TAB PO SCH (09:40)
--- NOTE | 2017-06-13 12:43 | HHI.PR ---
Subjective Remarks Follow-up sepsis and UTI. He has no new complaints. Not a good historian. States he has not been out of bed. BP elevated started on lisinopril. Denies drug allergies discussed with RN Objective Vitals Vital Signs Date Time Temp Pulse Resp B/P (MAP) Pulse Ox O2 Delivery O2 Flow Rate FiO2 06/13/17 08:00 100.0 90 17 164/79 (107) 98 06/13/17 07:22 98 21 06/13/17 04:00 100.9 100 20 183/86 (118) 95 06/13/17 00:25 96.9 100 20 166/88 (114) 97 06/12/17 20:24 101.6 107 17 169/78 (108) 97 06/12/17 16:00 99.7 119 20 139/74 (95) 98 I/O 06/12/17 06/12/17 06/12/17 06/13/17 06/13/17 06/13/17 07:00 15:00 23:00 07:00 15:00 23:00 Intake Total 700 ml 2100 ml 480 ml Output Total 975 ml 600 ml 700 ml Balance -275 ml 1500 ml -220 ml Intake Oral 1800 ml 480 ml IV Total 700 ml 300 ml Output Urine Total 975 ml 600 ml 700 ml # Voids 3 # Bowel Movements 1 Result Diagram: 06/13/17 0654 06/13/17 0654 Imaging Last Impressions Chest X-Ray 06/10/17 1153 Signed Impressions: Service Date/Time: May 12:55 - CONCLUSION: No acute disease. Kwaku Vizcaino MD Maxillofacial CT 06/10/17 0000 Signed Impressions: Service Date/Time: May 14:20 - CONCLUSION: 1. Severe opacification of the right maxillary sinus with thickening of the right maxillary sinus langford suggesting chronic sinus disease. Erosion of the medial wall of the right maxillary sinus. 2. No evidence of fracture. Brian Mendoza MD Head CT 06/10/17 0000 Signed Impressions: Service Date/Time: May 12:19 - CONCLUSION: 1. No acute intracranial abnormality. 2. Opacification of the right maxillary sinus. There is concern for fracture the inferior aspect of the right orbit. CT imaging of the facial bones is warranted. Ramos Ortega MD Objective Remarks GENERAL: This is a well-nourished, well-developed patient, in no apparent distress. Awake and alert. SKIN: Warm and dry. (+)bilateral superficial abrasions on both knees L>R. Hyperpigmented linear old excoriations on anterior lower legs. NECK: Trachea midline. No JVD or lymphadenopathy. Supple, nontender, no meningeal signs. CARDIOVASCULAR: Distant heart sounds without murmurs, gallops, or rubs. RESPIRATORY: Clear to auscultation. Breath sounds equal bilaterally. No wheezes , rales, or rhonchi. GASTROINTESTINAL: Abdomen protuberant, soft, non-tender, nondistended. No guarding. MUSCULOSKELETAL: Extremities without clubbing, cyanosis, or edema. No calf tenderness. NEUROLOGICAL: Awake and alert. Able to move all extremities. Nonfocal. Normal speech Procedures none A/P Problem List: (1) Sepsis ICD Code: A41.9 - Sepsis, unspecified organism Status: Acute Assessment and Plan 67yo male with a PMHX significant for HTN and IDDM who presents to [facility] ED with complaints of fever and weakness. Severe sepsis criteria with elevated white count of 20.8, temperature of 101.7, elevated lactic acid level of 2.8, tachycardic with HR 112, elevated RR 30 and renal failure with creatinine of 1.75. Continues to have low-grade fever. Blood culture negative UTI. Urine culture with yeast Weakness, difficulty walking, s/p fall at home - Patient started on IV antibiotics with Vancomycin and Zosyn in the ED. Ct IV Cipro and IV Diflucan. 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 - Followup Facial CT personally reviewed and shows severe opacification of the right maxillary sinus with thickening of the right maxillary sinus langford suggesting chronic sinus disease and erosion of the medial wall of the right maxillary sinus. No evidence of fracture. - fall precautions - PT eval/tx ARON on suspected CKD 3 - last Cr in system 03/06/16 1.97 - avoid nephrotoxic agents - Improved discontinue IVF - monitor I&Os - monitor kidney function HTN - BP elevated at ED presentation. Start BILL inhibitor and monitor - requested nurse to complete medical reconciliation and will continue home antihypertensive once med rec updated - Hydralazine and Clonidine prn with parameters - monitor BP DM, insulin dependent. Improving hyperglycemia - requested ED nurse complete med rec. Adjust Levemir to 44 units daily - continue patient on home Glipizide 20mg daily - accuchecks - ISS - heart healthy diabetic diet Hypokalemia -Status post replacement Constipation. Continue bowel regimen DVT prophylaxis - Bilateral SCD/AMY hose and SQ heparin Discharge Planning Not stable for discharge. Will need rehabilitation versus home healthcare Problem Qualifiers (1) Sepsis: Qualified Codes: A41.9 - Sepsis, unspecified organism Bakari Winters MD Jun 13, 2017 12:43
[2017-06-13] MEDS: SODIUM CHLOR 0.9% 1000 ML INJ 1,000 ML IV SCH (13:25)
[2017-06-13] MEDS: FLUCONAZOLE/NACL 200 MG/100 ML IV SCH (13:25)
[2017-06-14] VITALS: BP 172/75; PULSE 86; RESP 20; TEMP 98.6; O2SAT 97
[2017-06-14] MEDS: SODIUM CHLOR 0.9% 1000 ML INJ 1,000 ML IV SCH ×3 (00:23→17:07)
[2017-06-14] MEDS: CIPROFLOXACIN 400 MG PREMIX 200 ML IV SCH ×2 (03:35→16:34)
[2017-06-14 04:00] VITALS: BP 166/78; PULSE 80; RESP 20; TEMP 100.3; O2SAT 98
[2017-06-14] MEDS: INSULIN DETEMIR 100 UNITS/ML VIAL SQ SCH (07:00)
[2017-06-14 08:00] VITALS: BP 189/85; PULSE 76; RESP 19; TEMP 98.8; O2SAT 99
[2017-06-14] MEDS: INSULIN ASPART SUPPLEMENTAL SCALE SQ SCH ×4 (08:00→19:47)
[2017-06-14] MEDS: LISINOPRIL 5 MG TAB PO SCH (08:21)
[2017-06-14] MEDS: DOCUSATE SODIUM 50 MG/SENNA 8.6 MG TAB PO SCH ×2 (08:21→19:48)
[2017-06-14] MEDS: glipiZIDE 10 MG TAB PO SCH (08:21)
[2017-06-14] MEDS: SODIUM CHLORIDE 0.9% FLUSH 10 ML FLUSH IV FLUSH SCH ×2 (08:22→19:47)
[2017-06-14] MEDS: HEPARIN SODIUM - SQ 10,000 UNITS/ML VIAL SQ SCH ×2 (08:22→19:49)
[2017-06-14] MEDS: cloNIDine HCL 0.1 MG TAB PO PRN (08:43)
[2017-06-14] MEDS ORDERED: WALKER WHEELS/F1 MIS (11:03)
[2017-06-14] MEDS ORDERED: ACETAMINOPHEN 325 MG TAB PO PRN (11:45)
--- NOTE | 2017-06-14 11:46 | HHI.PR ---
Subjective Remarks Simeon of temp 101 last night C/o headache, also BP noted into a higher side BS noted in 80s in the morning and was 70 last night , He did received 44 U levemir yesterday. Will decreased levemir. Patient not eating much. He is at the margin of the bed, per nurse and H[employer] TECHNICIAN it took 20 min to move to the margin of the bed. He doesn't have fever today. No chest pain or sob. He complaints of headache but no motor deficit or change in vision. Denies sob or chest pain. he feels very tired. Objective Vitals Vital Signs Date Time Temp Pulse Resp B/P (MAP) Pulse Ox O2 Delivery O2 Flow Rate FiO2 06/14/17 08:00 98.8 76 19 189/85 (119) 99 06/14/17 04:00 100.3 80 20 166/78 (107) 98 06/14/17 00:00 98.6 86 20 172/75 (107) 97 06/13/17 21:00 86 06/13/17 21:00 86 06/13/17 20:00 101.0 91 22 172/72 (105) 97 06/13/17 16:00 100.3 95 17 150/67 (94) 98 06/13/17 12:00 99.0 89 17 144/75 (98) 99 I/O 06/13/17 06/13/17 06/13/17 06/14/17 06/14/17 06/14/17 06:59 14:59 22:59 06:59 14:59 22:59 Intake Total 480 ml 200 ml 340 ml 1520 ml 120 ml Output Total 700 ml 700 ml 700 ml Balance -220 ml 200 ml -360 ml 820 ml 120 ml Intake Oral 480 ml 240 ml 320 ml 120 ml IV Total 200 ml 100 ml 1200 ml Output Urine Total 700 ml 700 ml 700 ml # Voids 1 # Bowel Movements 0 Result Diagram: 06/13/17 0654 06/13/17 0654 Imaging Last Impressions Chest X-Ray 06/10/17 1153 Signed Impressions: Service Date/Time: May 12:55 - CONCLUSION: No acute disease. Kwaku Vizcaino MD Maxillofacial CT 06/10/17 0000 Signed Impressions: Service Date/Time: May 14:20 - CONCLUSION: 1. Severe opacification of the right maxillary sinus with thickening of the right maxillary sinus langford suggesting chronic sinus disease. Erosion of the medial wall of the right maxillary sinus. 2. No evidence of fracture. Brian Mendoza MD Head CT 06/10/17 0000 Signed Impressions: Service Date/Time: May 12:19 - CONCLUSION: 1. No acute intracranial abnormality. 2. Opacification of the right maxillary sinus. There is concern for fracture the inferior aspect of the right orbit. CT imaging of the facial bones is warranted. Ramos Ortega MD Objective Remarks GENERAL: This is a well-nourished, well-developed patient, in no apparent distress. Awake and alert. SKIN: Warm and dry. (+)bilateral superficial abrasions on both knees L>R. Hyperpigmented linear old excoriations on anterior lower legs. NECK: Trachea midline. No JVD or lymphadenopathy. Supple, nontender, no meningeal signs. CARDIOVASCULAR: Distant heart sounds without murmurs, gallops, or rubs. RESPIRATORY: Clear to auscultation. Breath sounds equal bilaterally. No wheezes , rales, or rhonchi. GASTROINTESTINAL: Abdomen protuberant, soft, non-tender, nondistended. No guarding. MUSCULOSKELETAL: Extremities without clubbing, cyanosis, or edema. No calf tenderness. NEUROLOGICAL: Awake and alert. Able to move all extremities. Nonfocal. Normal speech Procedures none A/P Problem List: (1) Sepsis ICD Code: A41.9 - Sepsis, unspecified organism Status: Acute Assessment and Plan (1) Sepsis ICD Code: A41.9 - Sepsis, unspecified organism Status: Acute Assessment and Plan 67yo male with a PMHX significant for HTN and IDDM who presents to [facility] ED with complaints of fever and weakness. Severe sepsis criteria with elevated white count of 20.8, temperature of 101.7, elevated lactic acid level of 2.8, tachycardic with HR 112, elevated RR 30 and renal failure with creatinine of 1.75. Continues to have low-grade fever. Blood culture negative UTI. Urine culture with yeast Weakness, difficulty walking, s/p fall at home - Patient on IV antibiotics with Vancomycin and Zosyn in the ED. Ct IV Cipro and IV Diflucan. Will consult ID for recommendations as patient with persistent fevers. 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 - Followup Facial CT personally reviewed and shows severe opacification of the right maxillary sinus with thickening of the right maxillary sinus langford suggesting chronic sinus disease and erosion of the medial wall of the right maxillary sinus. No evidence of fracture. - fall precautions - PT eval/tx ARON on suspected CKD 3. Cr improving. - last Cr in system 03/06/16 1.97 - avoid nephrotoxic agents - Improved discontinue IVF - monitor I&Os - monitor kidney function HTN - BP elevated at ED presentation. Start BILL inhibitor and monitor - requested nurse to complete medical reconciliation and will continue home antihypertensive once med rec updated - Hydralazine and Clonidine prn with parameters - monitor BP DM, insulin dependent. Improving hyperglycemia - requested ED nurse complete med rec.Decrease Levemir to 35 units daily as noted hypoglycemic - continue patient on home Glipizide 20mg daily - accuchecks - ISS - heart healthy diabetic diet Hypokalemia -Status post replacement Constipation. Continue bowel regimen DVT prophylaxis - Bilateral SCD/AMY hose and SQ heparin Discharge Planning Not stable for discharge. Will need rehabilitation versus home healthcare. Problem Qualifiers (1) Sepsis: Qualified Codes: A41.9 - Sepsis, unspecified organism Kylie Robles MD Jun 14, 2017 11:46
[2017-06-14 12:00] VITALS: BP 180/89; PULSE 80; RESP 20; TEMP 96.9; O2SAT 98
[2017-06-14] MEDS: ACETAMINOPHEN/HYDROcodone 325 MG/5 MG TAB PO PRN (12:37)
[2017-06-14] MEDS: FLUCONAZOLE/NACL 200 MG/100 ML IV SCH (14:51)
[2017-06-14 16:00] VITALS: BP 164/72; PULSE 87; RESP 19; TEMP 97.8; O2SAT 98
[2017-06-14 20:00] VITALS: BP 153/68; PULSE 105; RESP 17; TEMP 101.5; O2SAT 97
[2017-06-14] MEDS: ACETAMINOPHEN 325 MG TAB PO PRN (20:42)
[2017-06-15] VITALS: BP 166/86; PULSE 87; RESP 20; TEMP 100.4; O2SAT 99
[2017-06-15] MEDS: ACETAMINOPHEN 325 MG TAB PO PRN ×2 (00:46→17:22)
[2017-06-15 04:00] VITALS: BP 167/97; PULSE 83; RESP 18; TEMP 99.4; O2SAT 100
[2017-06-15] MEDS: CIPROFLOXACIN 400 MG PREMIX 200 ML IV SCH (04:49)
[2017-06-15] MEDS: SODIUM CHLOR 0.9% 1000 ML INJ 1,000 ML IV SCH ×2 (04:49→13:58)
[2017-06-15] MEDS: INSULIN DETEMIR 100 UNITS/ML VIAL SQ SCH (07:00)
[2017-06-15 08:00] VITALS: BP 176/83; PULSE 87; RESP 20; TEMP 96.9; O2SAT 99
[2017-06-15] MEDS: LISINOPRIL 5 MG TAB PO SCH (08:45)
[2017-06-15] MEDS: DOCUSATE SODIUM 50 MG/SENNA 8.6 MG TAB PO SCH ×2 (08:45→21:53)
[2017-06-15] MEDS: HEPARIN SODIUM - SQ 10,000 UNITS/ML VIAL SQ SCH ×2 (08:45→21:50)
[2017-06-15] MEDS: SODIUM CHLORIDE 0.9% FLUSH 10 ML FLUSH IV FLUSH SCH ×2 (08:46→21:00)
[2017-06-15] MEDS: INSULIN ASPART SUPPLEMENTAL SCALE SQ SCH ×4 (08:46→21:51)
[2017-06-15] MEDS: glipiZIDE 10 MG TAB PO SCH (08:46)
--- NOTE | 2017-06-15 10:40 | HHI.PR ---
Subjective Remarks In bed. Says he feels tired. He denies having chest pain. Complains of some sob , satting well on 2L NC. No fever or chills. No n/v/d/c. Objective Vitals Vital Signs Date Time Temp Pulse Resp B/P (MAP) Pulse Ox O2 Delivery O2 Flow Rate FiO2 06/15/17 08:00 96.9 87 20 176/83 (114) 99 06/15/17 04:00 99.4 83 18 167/97 (120) 100 06/15/17 00:00 100.4 87 20 166/86 (112) 99 06/14/17 20:00 101.5 105 17 153/68 (96) 97 06/14/17 16:00 97.8 87 19 164/72 (102) 98 06/14/17 12:00 96.9 80 20 180/89 (119) 98 I/O 06/14/17 06/14/17 06/14/17 06/15/17 06/15/17 06/15/17 07:00 15:00 23:00 07:00 15:00 23:00 Intake Total 1520 ml 120 ml 2456 ml 240 ml Output Total 700 ml 1200 ml Balance 820 ml 120 ml 1256 ml 240 ml Intake Oral 320 ml 120 ml 960 ml 240 ml IV Total 1200 ml 1496 ml Output Urine Total 700 ml 1200 ml # Bowel Movements 0 0 Result Diagram: 06/13/17 0654 06/13/17 0654 Imaging Last Impressions Chest X-Ray 06/10/17 1153 Signed Impressions: Service Date/Time: May 12:55 - CONCLUSION: No acute disease. Kwaku Vizcaino MD Maxillofacial CT 06/10/17 0000 Signed Impressions: Service Date/Time: May 14:20 - CONCLUSION: 1. Severe opacification of the right maxillary sinus with thickening of the right maxillary sinus langford suggesting chronic sinus disease. Erosion of the medial wall of the right maxillary sinus. 2. No evidence of fracture. Brian Mendoza MD Head CT 06/10/17 0000 Signed Impressions: Service Date/Time: May 12:19 - CONCLUSION: 1. No acute intracranial abnormality. 2. Opacification of the right maxillary sinus. There is concern for fracture the inferior aspect of the right orbit. CT imaging of the facial bones is warranted. Ramos Ortega MD Objective Remarks GENERAL: This is a well-nourished, well-developed patient, in no apparent distress. Awake and alert. SKIN: Warm and dry. (+)bilateral superficial abrasions on both knees L>R. Hyperpigmented linear old excoriations on anterior lower legs. NECK: Trachea midline. No JVD or lymphadenopathy. Supple, nontender, no meningeal signs. CARDIOVASCULAR: Distant heart sounds without murmurs, gallops, or rubs. RESPIRATORY: Clear to auscultation. Breath sounds equal bilaterally. No wheezes , rales, or rhonchi. GASTROINTESTINAL: Abdomen protuberant, soft, non-tender, nondistended. No guarding. MUSCULOSKELETAL: Extremities without clubbing, cyanosis, or edema. No calf tenderness. NEUROLOGICAL: Awake and alert. Able to move all extremities. Nonfocal. Normal speech Procedures none A/P Problem List: (1) Sepsis ICD Code: A41.9 - Sepsis, unspecified organism Status: Acute Assessment and Plan 67yo male with a PMHX significant for HTN and IDDM who presents to [facility] ED with complaints of fever and weakness. Severe sepsis criteria with elevated white count of 20.8, temperature of 101.7, elevated lactic acid level of 2.8, tachycardic with HR 112, elevated RR 30 and renal failure with creatinine of 1.75. Continues to have low-grade fever. Blood culture negative UTI. Urine culture with yeast Weakness, difficulty walking, s/p fall at home - Patient on IV antibiotics with Vancomycin and Zosyn in the ED. Ct IV Cipro and IV Diflucan. Will consult ID for recommendations as patient with persistent fevers. 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 - Followup Facial CT personally reviewed and shows severe opacification of the right maxillary sinus with thickening of the right maxillary sinus langford suggesting chronic sinus disease and erosion of the medial wall of the right maxillary sinus. No evidence of fracture. -Patient with persistent fevers ID specialist is consulted. Also consult ENT for evaluation. Patient with fevers, he is a diabetic patient and with sinusitis - fall precautions - PT eval/tx ARON on suspected CKD 3. Cr improving. - last Cr in system 03/06/16 1.97 - avoid nephrotoxic agents - Improved discontinue IVF - monitor I&Os - monitor kidney function HTN - BP elevated at ED presentation. Start BILL inhibitor and monitor - requested nurse to complete medical reconciliation and will continue home antihypertensive once med rec updated - Hydralazine and Clonidine prn with parameters - monitor BP DM, insulin dependent. Improving hyperglycemia - requested ED nurse complete med rec.Decrease Levemir to 35 units daily as noted hypoglycemic - continue patient on home Glipizide 20mg daily - accuchecks - ISS - heart healthy diabetic diet Hypokalemia -Status post replacement Constipation. Continue bowel regimen DVT prophylaxis - Bilateral SCD/AMY hose and SQ heparin Discharge Planning Not stable for discharge. Will need rehabilitation versus home healthcare. Discussed with the patient, nurse, ID physician Dr Yun Problem Qualifiers (1) Sepsis: Qualified Codes: A41.9 - Sepsis, unspecified organism Kylie Robles MD Jun 15, 2017 10:40
[2017-06-15 12:00] VITALS: BP 177/74; PULSE 98; RESP 19; TEMP 100; O2SAT 97
[2017-06-15] MEDS: FLUCONAZOLE/NACL 200 MG/100 ML IV SCH (13:57)
--- NOTE | 2017-06-15 15:16 | PD.ID.CON ---
History of Present Illness Service ID Consult Requested By Reason for Consult Evaluation and Mment of Sepsis, UTI Primary Care Physician [facility] Diagnoses: History of Present Illness is a 67 y.o AAM with PMHx of chronic sinusitis never seen by ENT self reports. Also PMHx significant for DM, HTN. He presents to the ED with fever and generalized weakness. Patient reports sudden onset of "not feeling well" this morning with associated weakness and inability to walk resulting in fall. Patient denies any dizziness or lightheadedness prior to fall. He denies any loss of consciousness or injury to the head. Patient denies any fever or chills at home but EMS recorded a temperature of 102.0. Patient denies any recent illness, ill contacts or recent travel. He denies any cuts, bites or open sores. Patient denies any headache, runny nose or cough. Patient denies any recent change in medications. Patient denies any complaints of pain including no chest pain or abdominal pain. He denies any urinary urgency, frequency or dysuria. He denies any diarrhea. He denies any recent antibiotic use. Patient denies any bleeding. Patient denies any history of stroke or OR. In the ED, patient has temperature of 101.7, elevated white count of 20.8 and elevated lactic acid level of 2.8. He is tachycardiac with a HR of 112. Respiratory rate elevated at 30. Troponin was 0.02. Creatinine is elevated at 1.75. CXR shows no acute cardiopulmonary process. EKG with sinus tachycardia. CT head shows opacification of the right maxillary sinus and concern for fracture of the inferior aspect of the right orbit. Followup Facial CT shows severe opacification of the right maxillary sinus with thickening of the right maxillary sinus langford suggesting chronic sinus disease and erosion of the medial wall of the right maxillary sinus. No evidence of fracture. ID consulted for evaluation and Mment of Sepsis, UTI. Review of Systems ROS Limitations: Poor Historian Constitutional: COMPLAINS OF: Fever, Chills Except as stated in HPI: all other systems reviewed are Neg Past Family Social History Allergies: Coded Allergies: No Known Allergies (Verified , 06/10/17) Past Medical History HTN DM, insulin dependent Past Surgical History Patient denies any previous surgical history. Reported Medications I attest that I obtained, reviewed and updated patients home meds and current medications (name, dose, frequency, route of administration of medications). Reported Meds & Active Scripts Active Walker with Front Wheels (Device) 1 Mis Mis Ea .ROUTE DIRECTED Reported Glipizide 10 Mg Tab 20 Mg PO DAILY Take 30 minutes before a meal Reports a BP medicine but does not know the name. Active Ordered Medications Current Medications Medications (Trade) Dose Ordered Sig/Ishmael Route Start Time Stop Time Status Last Admin (D50w (Vial) Inj) 50 ml UNSCH PRN IV PUSH 06/10/17 14:45 (Glucagon Inj) 1 mg UNSCH PRN OTHER 06/10/17 14:45 (NovoLOG SUPPLEMENTAL SCALE) 1 ACHS SLIDING SCALE SQ 06/10/17 17:00 06/15/17 13:00 Sodium Chloride 1,000 ml @ 100 mls/hr Q10H IV 06/10/17 14:31 06/15/17 13:58 (NS Flush) 2 ml UNSCH PRN IV FLUSH 06/10/17 14:45 (NS Flush) 2 ml BID IV FLUSH 06/10/17 21:00 06/14/17 08:22 (Tylenol) 650 mg Q4H PRN PO 06/10/17 14:45 06/15/17 00:46 (Zofran Inj) 4 mg Q6H PRN IVP 06/10/17 14:45 (Tylenol) 650 mg Q6H PRN PO 06/10/17 14:45 ([place] 5-325 Mg) 1 tab Q4H PRN PO 06/10/17 14:45 06/14/17 12:37 ([place] 7.5-325 Mg) 1 tab Q4H PRN PO 06/10/17 14:45 (Morphine Inj) 1 mg Q3H PRN IV PUSH 06/10/17 14:45 (Narcan Inj) 0.4 mg UNSCH PRN IV PUSH 06/10/17 14:45 (Yumiko-Colace) 1 tab BID PO 06/10/17 21:00 06/15/17 08:45 (Senokot) 17.2 mg Q12H PRN PO 06/10/17 14:45 (Dulcolax Supp) 10 mg DAILY PRN RECTAL 06/10/17 14:45 (Lactulose Liq) 30 ml DAILY PRN PO 06/10/17 14:45 06/15/17 05:57 Pharmacy Profile Note 0 ml @ 0 mls/hr UNSCH OTHER 06/10/17 16:45 Ciprofloxacin/ Dextrose 200 ml @ 200 mls/hr Q12H IV 06/11/17 04:00 06/15/17 04:49 (Glucotrol) 20 mg DAILY PO 06/11/17 09:00 06/15/17 08:46 (Apresoline Inj) 10 mg Q6H PRN IV PUSH 06/10/17 16:45 (Catapres) 0.1 mg Q6H PRN PO 06/10/17 16:45 06/14/17 08:43 (Heparin Inj) 5,000 units Q12HR SQ 06/10/17 23:45 06/15/17 08:45 Fluconazole/ Sodium Chloride 100 ml @ 100 mls/hr Q24H IV 06/12/17 14:00 06/15/17 13:57 (Prinivil) 5 mg DAILY PO 06/13/17 09:30 06/15/17 08:45 (Levemir Inj) 35 units AC BREAKFAST SQ 06/15/17 07:00 06/15/17 07:00 Family History reviewed and NC to current ID problems. Social History Patient reports tobacco use of 1/2 ppd. Patient denies any alcohol consumption. Patient denies any illicit drug use. Physical Exam Vital Signs Vital Signs Date Time Temp Pulse Resp B/P (MAP) Pulse Ox O2 Delivery O2 Flow Rate FiO2 06/15/17 12:00 100.0 98 19 177/74 (108) 97 06/15/17 08:00 96.9 87 20 176/83 (114) 99 06/15/17 04:00 99.4 83 18 167/97 (120) 100 06/15/17 00:00 100.4 87 20 166/86 (112) 99 06/14/17 20:00 101.5 105 17 153/68 (96) 97 06/14/17 16:00 97.8 87 19 164/72 (102) 98 Physical Exam GENERAL: This is a well-nourished, well-developed patient, in no apparent distress. SKIN: No rashes, ecchymoses or lesions. Cool and dry. HEAD: Atraumatic. Normocephalic. No temporal or scalp tenderness. EYES: Pupils equal round and reactive. Extraocular motions intact. No scleral icterus. No injection or drainage. ENT: Nose without bleeding, purulent drainage or septal hematoma. Throat without erythema, tonsillar hypertrophy or exudate. Uvula midline. Airway patent. NECK: Trachea midline. No JVD or lymphadenopathy. Supple, nontender, no meningeal signs. CARDIOVASCULAR: Regular rate and rhythm without murmurs, gallops, or rubs. RESPIRATORY: Clear to auscultation. Breath sounds equal bilaterally. No wheezes , rales, or rhonchi. GASTROINTESTINAL: Abdomen soft, non-tender, nondistended. No hepato-splenomegaly , or palpable masses. No guarding. MUSCULOSKELETAL: Extremities without clubbing, cyanosis, or edema. No joint tenderness, effusion, or edema noted. No calf tenderness. Negative Homans sign bilaterally. NEUROLOGICAL: Awake and alert. Cranial nerves II through XII intact. Motor and sensory grossly within normal limits. Five out of 5 muscle strength in all muscle groups. Normal speech. Psych cooperative IV line sites with no e.o infection Laboratory Date/Time Source Procedure Growth Status 06/10/17 12:15 Blood Peripheral Aerobic Blood Culture - Final NO GROWTH IN 5 DAYS Complete 06/10/17 12:15 Blood Peripheral Anaerobic Blood Culture - Final NO GROWTH IN 5 DAYS Complete 06/10/17 12:35 Nasal Aspirate Influenza Types A,B Antigen (MINOO) - Final NEGATIVE FOR FLU A AND B ANTIGEN.... Complete 06/10/17 22:05 Urine Catheterized Urine Urine Culture - Final Petra Glabrata Complete Result Diagram: 06/13/17 0654 06/13/17 0654 Imaging Last Impressions Chest X-Ray 06/10/17 1153 Signed Impressions: Service Date/Time: May 12:55 - CONCLUSION: No acute disease. Kwaku Vizcaino MD Maxillofacial CT 06/10/17 0000 Signed Impressions: Service Date/Time: May 14:20 - CONCLUSION: 1. Severe opacification of the right maxillary sinus with thickening of the right maxillary sinus langford suggesting chronic sinus disease. Erosion of the medial wall of the right maxillary sinus. 2. No evidence of fracture. Brian Mendoza MD Head CT 06/10/17 0000 Signed Impressions: Service Date/Time: Thursday, June 10, 2017 12:19 - CONCLUSION: 1. No acute intracranial abnormality. 2. Opacification of the right maxillary sinus. There is concern for fracture the inferior aspect of the right orbit. CT imaging of the facial bones is warranted. Ramos Ortega MD Assessment and Plan Assessment and Plan Sepsis ongoing Right maxillary sinus disease severe with opacification with erosion concerning for ? osteomyelitis. Rule out encephalitis, cerebritis. Rule out mucormycosis. DM as risk factor for mucor. Petra glabrata in urine. Fevers persist despite diflucan. DM uncontrolled. Recs DC cipro Start Unasyn IV Continue Diflucan for now. ENT consult MRI brain rule out encephalitis, cerebritis. Follow cultures Follow clinically Sherita Yun MD Jun 15, 2017 15:16
[2017-06-15 16:00] VITALS: BP 175/74; PULSE 91; RESP 19; TEMP 101.2; O2SAT 98
[2017-06-15] MEDS: AMPICILLIN-SULBACTAM INJ 1,500 MG in SODIUM CHLORIDE 0.9% INJ 100 ML IV SCH ×2 (17:19→21:54)
[2017-06-15 20:00] VITALS: BP 179/77; PULSE 93; RESP 18; TEMP 99.7; O2SAT 98
[2017-06-15] MEDS: hydrALAZINE HCL 10 MG TAB PO PRN (21:51)
[2017-06-16 00:40] VITALS: BP 197/81; PULSE 94; RESP 18; TEMP 101.4; O2SAT 97
[2017-06-16] MEDS: ACETAMINOPHEN 325 MG TAB PO PRN (00:53)
[2017-06-16] MEDS: cloNIDine HCL 0.1 MG TAB PO PRN (00:53)
[2017-06-16 04:00] VITALS: BP 170/72; PULSE 81; RESP 18; TEMP 97.6; O2SAT 97
[2017-06-16] MEDS: SODIUM CHLOR 0.9% 1000 ML INJ 1,000 ML IV SCH ×3 (04:42→22:57)
[2017-06-16] MEDS: AMPICILLIN-SULBACTAM INJ 1,500 MG in SODIUM CHLORIDE 0.9% INJ 100 ML IV SCH (04:44)
[2017-06-16 08:00] VITALS: BP 109/65; PULSE 80; RESP 18; TEMP 99.8; O2SAT 98
[2017-06-16] MEDS: INSULIN ASPART SUPPLEMENTAL SCALE SQ SCH ×4 (08:00→21:00)
[2017-06-16] MEDS: SODIUM CHLORIDE 0.9% FLUSH 10 ML FLUSH IV FLUSH SCH ×2 (08:46→21:00)
[2017-06-16] MEDS: DOCUSATE SODIUM 50 MG/SENNA 8.6 MG TAB PO SCH ×2 (08:47→21:00)
[2017-06-16] MEDS: HEPARIN SODIUM - SQ 10,000 UNITS/ML VIAL SQ SCH ×2 (08:47→21:00)
[2017-06-16] MEDS: glipiZIDE 10 MG TAB PO SCH (08:47)
[2017-06-16] MEDS: INSULIN DETEMIR 100 UNITS/ML VIAL SQ SCH (08:47)
[2017-06-16] MEDS: LISINOPRIL 5 MG TAB PO SCH (08:47)
[2017-06-16] MEDS ORDERED: VANCOMYCIN INJ 1,000 MG in SODIUM CHLOR 0.9% 250 ML INJ 250 ML IV SCH (11:00)
[2017-06-16] MEDS ORDERED: Vancomycin Consult Pharmacy 1 EA OTHER SCH (11:00)
--- NOTE | 2017-06-16 11:06 | HHI.PR ---
Subjective Remarks In the chair. Has spikes of fever. Patient has right groin discomfort, noted some discharge and fluid collection. He denies any nausea or vomiting. No chest pain or sob. Feels tired./ Eating fairly well. Objective Vitals Vital Signs Date Time Temp Pulse Resp B/P (MAP) Pulse Ox O2 Delivery O2 Flow Rate FiO2 06/16/17 08:00 99.8 80 18 109/65 (80) 98 06/16/17 04:00 97.6 81 18 170/72 (104) 97 06/16/17 00:40 101.4 94 18 197/81 (119) 97 06/15/17 20:00 99.7 93 18 179/77 (111) 98 06/15/17 16:00 101.2 91 19 175/74 (107) 98 06/15/17 12:00 100.0 98 19 177/74 (108) 97 I/O 06/15/17 06/15/17 06/15/17 06/16/17 06/16/17 06/16/17 07:00 15:00 23:00 07:00 15:00 23:00 Intake Total 240 ml 1560 ml 651 ml Output Total 500 ml 550 ml Balance 240 ml 1060 ml 101 ml Intake Oral 240 ml 960 ml IV Total 600 ml 651 ml Output Urine Total 500 ml 550 ml # Bowel Movements 1 Result Diagram: 06/13/17 0654 06/13/17 0654 Imaging Last Impressions Chest X-Ray 06/10/17 1153 Signed Impressions: Service Date/Time: May 12:55 - CONCLUSION: No acute disease. Kwaku Vizcaino MD Maxillofacial CT 06/10/17 0000 Signed Impressions: Service Date/Time: May 14:20 - CONCLUSION: 1. Severe opacification of the right maxillary sinus with thickening of the right maxillary sinus langford suggesting chronic sinus disease. Erosion of the medial wall of the right maxillary sinus. 2. No evidence of fracture. Brian Mendoza MD Head CT 06/10/17 0000 Signed Impressions: Service Date/Time: May 12:19 - CONCLUSION: 1. No acute intracranial abnormality. 2. Opacification of the right maxillary sinus. There is concern for fracture the inferior aspect of the right orbit. CT imaging of the facial bones is warranted. Ramos Ortega MD Objective Remarks GENERAL: This is a well-nourished, well-developed patient, in no apparent distress. Awake and alert. SKIN: Warm and dry. (+)bilateral superficial abrasions on both knees L>R. Hyperpigmented linear old excoriations on anterior lower legs. NECK: Trachea midline. No JVD or lymphadenopathy. Supple, nontender, no meningeal signs. CARDIOVASCULAR: Distant heart sounds without murmurs, gallops, or rubs. RESPIRATORY: Clear to auscultation. Breath sounds equal bilaterally. No wheezes , rales, or rhonchi. GASTROINTESTINAL: Abdomen protuberant, soft, non-tender, nondistended. No guarding. MUSCULOSKELETAL: Extremities without clubbing, cyanosis, or edema. No calf tenderness. : Right groin with fluctuant collection some purulent discharge coming out NEUROLOGICAL: Awake and alert. Able to move all extremities. Nonfocal. Normal speech Procedures none A/P Problem List: (1) Sepsis ICD Code: A41.9 - Sepsis, unspecified organism Status: Acute Assessment and Plan 67 yo male with a PMHX significant for HTN and IDDM who presents to [facility] ED with complaints of fever and weakness. Severe sepsis criteria with elevated white count of 20.8, temperature of 101.7, elevated lactic acid level of 2.8, tachycardic with HR 112, elevated RR 30 and renal failure with creatinine of 1.75. Continues to have low-grade fever. Blood culture negative UTI. Urine culture with yeast. Patient with right maxillary sinus with thickening of the right maxillary sinus langford suggesting chronic sinus disease and erosion of the medial wall of the right maxillary sinus. Consult ENT for evaluation Noted with right groin pain, fluid collection poss abscess, will do US, with purulent discharge. Will consult Wound care. Will consult gen surg if abscess by US. DC Unacyn and start Vancomycin, pharm consulted to f/u vanc levels Weakness, difficulty walking, s/p fall at home - Patient on IV antibiotics with Vancomycin and Zosyn in the ED.Received IV Cipro and IV Diflucan. Will consult ID for recommendations as patient with persistent fevers. - patient given IVF fluid bolus 3L - Blood cultures negative. Will repeat blood cultures as patient with persistent fevers - CXR personally reviewed and shows no acute cardiopulmonary disease - EKG personally reviewed revealing sinus tachycardia with q waves noted in inferior leads possibly suggesting old infarct - CT head personally reviewed and shows opacification of the right maxillary sinus and concern for fracture of the inferior aspect of the right orbit. - Followup Facial CT personally reviewed and shows severe opacification of the right maxillary sinus with thickening of the right maxillary sinus langford suggesting chronic sinus disease and erosion of the medial wall of the right maxillary sinus. No evidence of fracture. -Patient with persistent fevers ID specialist is consulted. Also consult ENT for evaluation. Patient with fevers, he is a diabetic patient and with sinusitis , candiduria, also now with poss right groin abscess - fall precautions - PT eval/tx ARON on suspected CKD 3. Cr improving. - last Cr in system 03/06/16 1.97 - avoid nephrotoxic agents - Improved discontinue IVF - monitor I&Os - monitor kidney function HTN - BP elevated at ED presentation. Start BILL inhibitor and monitor - requested nurse to complete medical reconciliation and will continue home antihypertensive once med rec updated - Hydralazine and Clonidine prn with parameters - monitor BP DM, insulin dependent. Improving hyperglycemia - requested ED nurse complete med rec.Decrease Levemir to 35 units daily as noted hypoglycemic - continue patient on home Glipizide 20mg daily - accuchecks - ISS - heart healthy diabetic diet Hypokalemia -Status post replacement Constipation. Continue bowel regimen DVT prophylaxis - Bilateral SCD/AMY hose and SQ heparin Discharge Planning Not stable for discharge. Will need rehabilitation versus home healthcare. Discussed with the patient, nurse, ID physician Dr Yun Problem Qualifiers (1) Sepsis: Qualified Codes: A41.9 - Sepsis, unspecified organism Kylie Robles MD Jun 16, 2017 11:06
--- NOTE | 2017-06-16 11:12 | MB ---
cc: RHETT RUBIO MD DATE OF CONSULTATION 06/16/2017 CHIEF COMPLAINT Chronic sinusitis. HISTORY OF PRESENT ILLNESS This is a 67-year-old male with a history of chronic sinusitis. According to him, he has had it since he was a young child chronically, recurrent, had seen doctors as a child for it and in the but never anyone since being discharged from the . He reports he had never had surgery on it while in the . His past medical history is significant for diabetes and hypertension. He was admitted from emergency department with generalized fever and weakness and just not feeling well, ultimately resulting into a fall from the weakness. He denies any current headache, discharge from his nose or increased pain or pressure in his maxillary sinuses or nasal congestion. He denies any sensitivity to his upper palate or gingiva and denies any nosebleeds. PAST MEDICAL HISTORY Significant for - 1. Diabetes mellitus which is insulin dependent. 2. Hypertension. PAST SURGICAL HISTORY He has no previous surgical history. MEDICATIONS Per the chart. SOCIAL HISTORY He smokes approximately half pack per day. Denies alcohol or drug use. PHYSICAL EXAMINATION GENERAL: The patient is alert and oriented x3, in no acute distress. VITAL SIGNS: He is he is currently afebrile. His vital signs are stable. HEENT EXAM: Nose without any obvious bleeding or discharge. A nasal endoscopy performed at bedside reveals pink, healthy mucosa bilaterally. The inferior turbinates are of normal size. The septum is slightly deviated. There is no mucosal lesion noted. The middle turbinates were healthy-appearing bilaterally. His ostiomeatal complex on the left is narrowed significantly with no purulent discharge but inspissated mucus noted around the ostium of the maxillary sinus on the left. It is slightly tender when palpated. There is very healthy-appearing mucosa. No discoloration noted and no paresthesias noted in the area. NECK EXAM: No palpable lymphadenopathy. HEART: Regular rate and rhythm. LUNGS: Clear to auscultation. IMAGING STUDIES CT scan reviewed shows what appears to be opacification of the maxillary sinus with thickening of the langford consistent with chronic sinus disease. There is no Charcot-Leyden crystals noted in the opacification. There is no bony erosion noted. Thinning of the medial wall consistent with chronic sinusitis. ASSESSMENT AND PLAN Although the patient is admitted for sepsis, I am not sure that this is coming from his maxillary sinus. His CT scan as well as his history is very consistent with a chronic sinusitis. There is no evidence of purulent drainage at this time. The patient also has no evidence of any fungal infection in the area with normal-appearing mucosa in the nasal cavity and still some tenderness to the mucosa suggesting live healthy mucosa. At this time the patient is telling me that he does not desire any kind of sinus surgery or intervention. However, as I discussed with him, should the primary team and infectious disease team feel that this is certainly being caused by the sinus, that in order for him to get better he would need some kind of sinus drainage procedure. He is fairly adamant that he does not want to have any kind of surgical intervention for his sinuses as he feels like it has been going on his entire life and is not causing him any difficulty. At this time I am unable to say for certain that this is causing any of his current symptoms as this appears to be a very chronic, indolent process. Should further workup determined that he would benefit from sinus drainage procedure, we would have to have the patient in full agreement with this his because at this time he is fairly adamant that he does not want to have such procedure. Thank you for this consultation. Rhett MURPHY/IVETTE /10:37 AM /10:51 AM
[2017-06-16 12:00] VITALS: BP 174/81; PULSE 83; RESP 20; TEMP 98.8; O2SAT 99
--- NOTE | 2017-06-16 12:12 | RADRPT ---
EXAM DATE/TIME: 06/16/2017 11:41 [facility] COMPARISON: No previous studies available for comparison. INDICATIONS : Right groin fluid collection. MEDICAL HISTORY : Hypertension. Diabetic. SURGICAL HISTORY : None. ENCOUNTER: Initial ACUITY: 1 day PAIN SCORE: 10/10 LOCATION: groin. AREA EVALUATED: Right perineum. FINDINGS: Target sonogram reveals soft tissue swelling with areas of low attenuation but no fluid collection or organized abscess. No mass seen. CONCLUSION: Soft tissue edema/swelling without abscess. Will Hart MD on June 16, 2017 at 12:10 Board Certified Radiologist. This report was verified electronically.
[2017-06-16] MEDS ORDERED: GADODIAMIDE PF 287 MG/ML 20 ML VIAL (for RAD MRI) IVCONTRAST ONE (12:56)
[2017-06-16] MEDS: VANCOMYCIN INJ 1,500 MG in SODIUM CHLORID 0.9% 500 ML INJ 500 ML IV SCH (13:30)
--- NOTE | 2017-06-16 13:37 | RADRPT ---
EXAM DATE/TIME: 06/16/2017 12:41 [facility] COMPARISON: No previous studies available for comparison. INDICATIONS : Mucormycosis CONTRAST: 20 cc Omniscan (gadodiamide) IV MEDICAL HISTORY : Hypertension. Diabetes mellitus type 2. SURGICAL HISTORY : Right arm. ENCOUNTER: Subsequent ACUITY: 2 day PAIN SCORE: 4/10 LOCATION: head. TECHNIQUE: Multiplanar, multisequence MRI of the brain was performed both prior to and following the administrat ion of paramagnetic contrast. FINDINGS: MRI of the brain is performed in sagittal, axial and coronal planes. The craniocervical junction and midline structures are unremarkable. Diffusion weighted images demonstrate no abnormality. There is n o evidence of acute cortical infarction, acute hemorrhage, mass effect or midline shift is seen. Foll owing the administration of contrast no abnormal enhancement is identified. There is benign-appearing mucosal disease in the right maxillary sinus. Posterior fossa structures are unremarkable. CONCLUSION: 1. No evidence of acute intracranial pathology. No masses are identified. 2. Opacified right maxillary sinus without aggressive features. Davi David MD on June 16, 2017 at 13:34 Board Certified Radiologist. This report was verified electronically.
--- NOTE | 2017-06-16 14:27 | PD.WCN.NOT ---
Wound Consult Description: Consult for right groin wound per Dr Robles Communicated with: MIQUEL Mohamud Dr Recommendation: General Surgery consult for possible I&D Irrigate wound with NS BID and replace ultrasorb as needed when soiled Additional Information: Patient seen on for right groin wound. Patient was able to pull leg up for visualization of right groin wound measuring 0.6cm circumferentially and using a sterile qtip the depth was measuring ~3cm with moderate brown purulent drainage noted. Due to opening of wound, the tissue of wound bed was not visualized at this time. The periwound is indurated. Wound was cleansed with NS and left open to air until Dr Robles is contacted for recommendations and orders for wound care dressing changes and general surgery consult for possible I&D. Becky Baez [facility] Jun 16, 2017 14:27
[2017-06-16 16:00] VITALS: BP 169/71; PULSE 78; RESP 18; TEMP 99.6; O2SAT 97
[2017-06-16] MEDS: FLUCONAZOLE/NACL 200 MG/100 ML IV SCH (17:35)
[2017-06-16] MEDS: ACETAMINOPHEN/HYDROcodone 325 MG/5 MG TAB PO PRN (19:15)
[2017-06-16 20:23] VITALS: BP 165/89; PULSE 89; RESP 20; TEMP 97.8; O2SAT 94
[2017-06-17] VITALS (8 sets, daily range): BP systolic 147–186; BP diastolic 65–79; PULSE 63–80; RESP 16–24; TEMP 98.1–100; O2SAT 91–99
[2017-06-17] MEDS: VANCOMYCIN INJ 1,500 MG in SODIUM CHLORID 0.9% 500 ML INJ 500 ML IV SCH (05:40)
[2017-06-17] MEDS: SODIUM CHLOR 0.9% 1000 ML INJ 1,000 ML IV SCH ×3 (05:40→20:31)
[2017-06-17] MEDS: INSULIN DETEMIR 100 UNITS/ML VIAL SQ SCH (07:00)
[2017-06-17] MEDS ORDERED: INSULIN HUMAN REGULAR 1,000 UNITS/10 ML VIAL SQ PRN (07:15)
[2017-06-17] MEDS ORDERED: LACTATED RINGER'S 1000 ML IV PRN (07:15)
[2017-06-17] MEDS ORDERED: POVIDONE IODINE 5% (ANTISEPSIS KIT) 4 APPLICATIONS EACH NARE PRN (07:15)
[2017-06-17] MEDS ORDERED: SODIUM CHLORID 0.9% 500 ML IV PRN (07:15)
[2017-06-17] MEDS ORDERED: CHLORHEXIDINE GLUCONATE 2 % 1 PACK (2 CLOTHS) TOPICAL PRN (07:15)
[2017-06-17] MEDS ORDERED: METOPROLOL TARTRATE 25 MG TAB PO PRN (07:15)
[2017-06-17] MEDS: INSULIN ASPART SUPPLEMENTAL SCALE SQ SCH ×4 (07:26→20:23)
[2017-06-17] MEDS: HEPARIN SODIUM - SQ 10,000 UNITS/ML VIAL SQ SCH ×2 (08:28→20:12)
[2017-06-17] MEDS: glipiZIDE 10 MG TAB PO SCH (08:28)
[2017-06-17] MEDS: SODIUM CHLORIDE 0.9% FLUSH 10 ML FLUSH IV FLUSH SCH ×2 (08:29→20:11)
[2017-06-17] MEDS: DOCUSATE SODIUM 50 MG/SENNA 8.6 MG TAB PO SCH ×2 (08:29→20:05)
[2017-06-17] MEDS: LISINOPRIL 5 MG TAB PO SCH (08:31)
--- NOTE | 2017-06-17 10:15 | HHI.PR ---
Subjective Subjective Notes no acute issues, still with groin pain, npo Objective Vitals/I&O Vital Signs Date Time Temp Pulse Resp B/P (MAP) Pulse Ox O2 Delivery O2 Flow Rate FiO2 06/17/17 08:00 98.9 63 21 154/77 (102) 97 06/13/17 07:22 21 Labs Laboratory Tests Test 06/17/17 07:24 Creatinine 0.88 Estimat Glomerular Filtration Rate 105 Date/Time Source Procedure Growth Status 06/10/17 12:15 Blood Peripheral Aerobic Blood Culture - Final NO GROWTH IN 5 DAYS Complete 06/10/17 12:15 Blood Peripheral Anaerobic Blood Culture - Final NO GROWTH IN 5 DAYS Complete 06/10/17 12:35 Nasal Aspirate Influenza Types A,B Antigen (MINOO) - Final NEGATIVE FOR FLU A AND B ANTIGEN.... Complete 06/10/17 22:05 Urine Catheterized Urine Urine Culture - Final Petra Glabrata Complete 06/16/17 13:51 Wound Groin Gram Stain - Final Resulted 06/16/17 13:51 Wound Groin Wound Culture Pending Resulted Abdomen: Other (groin with drainage of purulent material) A/P Assessment and Plan multiple medical issues, groin abscess PLAN npo for OR today for I and D of groin abscess with possible vac placement discussed with patient in detail iv x Shahid Porter MD Jun 17, 2017 10:15
--- NOTE | 2017-06-17 10:22 | HHI.IDPN ---
Subjective Subjective Remarks Delayed entry note for 06/16/2017. Patient seen at approx 3 pm is a 67 y.o AAM with PMHx of chronic sinusitis never seen by ENT self reports. Also PMHx significant for DM, HTN. He presents to the ED with fever and generalized weakness. Patient reports sudden onset of "not feeling well" this morning with associated weakness and inability to walk resulting in fall. Patient denies any dizziness or lightheadedness prior to fall. He denies any loss of consciousness or injury to the head. Patient denies any fever or chills at home but EMS recorded a temperature of 102.0. Patient denies any recent illness, ill contacts or recent travel. He denies any cuts, bites or open sores. Patient denies any headache, runny nose or cough. Patient denies any recent change in medications. Patient denies any complaints of pain including no chest pain or abdominal pain. He denies any urinary urgency, frequency or dysuria. He denies any diarrhea. He denies any recent antibiotic use. Patient denies any bleeding. Patient denies any history of stroke or HI. In the ED, patient has temperature of 101.7, elevated white count of 20.8 and elevated lactic acid level of 2.8. He is tachycardiac with a HR of 112. Respiratory rate elevated at 30. Troponin was 0.02. Creatinine is elevated at 1.75. CXR shows no acute cardiopulmonary process. EKG with sinus tachycardia. CT head shows opacification of the right maxillary sinus and concern for fracture of the inferior aspect of the right orbit. Followup Facial CT shows severe opacification of the right maxillary sinus with thickening of the right maxillary sinus langford suggesting chronic sinus disease and erosion of the medial wall of the right maxillary sinus. No evidence of fracture. ID consulted for evaluation and Mment of Sepsis, UTI. Overnight events reviewed Due to persistent pain in groin area patient had US of that area done which showed induration. RN reports she noticed some discharge on pressing as well. Vanco IV started Fevers overnight. No rash No diarrhea Antibiotics Unasyn IV Vanco IV diflucan Lines Line sites with no e.o infection Past Medical History reviewed Allergies: Coded Allergies: No Known Allergies (Verified , 06/10/17) Objective . Vital Signs Date Time Temp Pulse Resp B/P (MAP) Pulse Ox O2 Delivery O2 Flow Rate FiO2 06/17/17 08:00 98.9 63 21 154/77 (102) 97 06/17/17 07:52 98.9 63 20 154/77 (102) 97 06/17/17 04:44 100.0 73 16 186/79 (114) 96 06/17/17 02:42 70 06/17/17 00:55 98.1 77 16 149/74 (99) 98 06/16/17 20:23 97.8 89 20 165/89 (114) 94 06/16/17 16:00 99.6 78 18 169/71 (103) 97 06/16/17 12:00 98.8 83 20 174/81 (112) 99 06/17/17 06/17/17 06/18/17 15:00 23:00 07:00 Intake Total 515 ml Balance 515 ml IV Total 515 ml . Laboratory Tests Test 06/17/17 07:24 Creatinine 0.88 MG/DL Estimat Glomerular Filtration Rate 105 ML/MIN Microbiology Date/Time Source Procedure Growth Status 06/16/17 13:51 Wound Groin Gram Stain - Final Resulted 06/16/17 13:51 Wound Groin Wound Culture Pending Resulted Imaging Last Impressions Soft Tissue Ultrasound 06/16/17 0000 Signed Impressions: Service Date/Time: Friday, June 16, 2017 11:41 - CONCLUSION: Soft tissue edema/swelling without abscess. Will Hart MD Brain MRI 06/16/17 0000 Signed Impressions: Service Date/Time: Friday, June 16, 2017 12:41 - CONCLUSION: 1. No evidence of acute intracranial pathology. No masses are identified. 2. Opacified right maxillary sinus without aggressive features. Davi David MD Chest X-Ray 06/10/17 1153 Signed Impressions: Service Date/Time: May 12:55 - CONCLUSION: No acute disease. Kwaku Vizcaino MD Maxillofacial CT 06/10/17 0000 Signed Impressions: Service Date/Time: May 14:20 - CONCLUSION: 1. Severe opacification of the right maxillary sinus with thickening of the right maxillary sinus langford suggesting chronic sinus disease. Erosion of the medial wall of the right maxillary sinus. 2. No evidence of fracture. Brian Mendoza MD Head CT 06/10/17 0000 Signed Impressions: Service Date/Time: May 12:19 - CONCLUSION: 1. No acute intracranial abnormality. 2. Opacification of the right maxillary sinus. There is concern for fracture the inferior aspect of the right orbit. CT imaging of the facial bones is warranted. Ramos Ortega MD Physical Exam GENERAL: This is a well-nourished, well-developed patient, in no apparent distress. SKIN: No rashes, ecchymoses or lesions. Cool and dry. HEAD: Atraumatic. Normocephalic. No temporal or scalp tenderness. EYES: Pupils equal round and reactive. Extraocular motions intact. No scleral icterus. No injection or drainage. ENT: Nose without bleeding, purulent drainage or septal hematoma. Throat without erythema, tonsillar hypertrophy or exudate. Uvula midline. Airway patent. NECK: Trachea midline. No JVD or lymphadenopathy. Supple, nontender, no meningeal signs. CARDIOVASCULAR: Regular rate and rhythm without murmurs, gallops, or rubs. RESPIRATORY: Clear to auscultation. Breath sounds equal bilaterally. No wheezes , rales, or rhonchi. GASTROINTESTINAL: Abdomen soft, non-tender, nondistended. No hepato-splenomegaly , or palpable masses. No guarding. MUSCULOSKELETAL: Extremities without clubbing, cyanosis, or edema. No joint tenderness, effusion, or edema noted. No calf tenderness. Negative Homans sign bilaterally. NEUROLOGICAL: Awake and alert. Cranial nerves II through XII intact. Motor and sensory grossly within normal limits. Five out of 5 muscle strength in all muscle groups. Normal speech. Psych cooperative IV line sites with no e.o infection Assessment & Plan Remarks Sepsis ongoing right groin abscess. Right maxillary sinus chronic disease. Rule out mucormycosis. DM as risk factor for mucor. Petra glabrata in urine. Fevers persist despite diflucan. DM uncontrolled. Recs continue Unasyn IV Continue Vanco IV(target 10-15) Continue Diflucan for now. d/w surgery consult. d.w patient and RN. ENT consult pending. Follow cultures Follow clinically Sherita Yun MD Jun 17, 2017 10:22
[2017-06-17] MEDS ORDERED: NEOMYCIN/POLYMYXIN 1 ML G.U. IRRIGANT ONE (10:34)
[2017-06-17] MEDS ORDERED: SUGAMMADEX SODIUM 200 MG/2 ML VIAL IV PUSH ONE ×2 (11:12)
[2017-06-17] MEDS ORDERED: DEXTROSE 5%-LACTATED RING INJ 1,000 ML ONE (11:12)
[2017-06-17] MEDS ORDERED: ESMOLOL HCL 100 MG/10 ML VIAL IV ONE (12:00)
[2017-06-17] MEDS ORDERED: ONDANSETRON HCL 4 MG/2 ML VIAL IV PUSH ONE (12:00)
[2017-06-17] MEDS ORDERED: LIDOCAINE HCL 1% PF 5 ML AMPULE OTHER ONE (12:00)
[2017-06-17] MEDS ORDERED: LABETALOL HCL 100 MG/20 ML VIAL IV ONE (12:00)
[2017-06-17] MEDS ORDERED: PROPOFOL 200 MG/20 ML AMP IV ONE (12:00)
[2017-06-17] MEDS ORDERED: ROCURONIUM INJ 50 MG/5 ML VIAL IV ONE (12:00)
--- NOTE | 2017-06-17 12:25 | HHI.PR ---
Immediate Post Op Note Procedure Date: Jun 17, 2017 Pre Op Diagnosis: groin abscess Post Op Diagnosis: same Surgeon: Shahid Porter MD Nozzle And Sleeve Worker(s): none Procedure: I and D groin abscess with vac Findings: purulent d/c Complications: none Specimen(s) removed: pus Estimated blood loss: 10cc Anesthesia: General Drains: Hemovac Patient to: PACU Patient Condition: Good Shahid Porter MD Jun 17, 2017 12:25
--- NOTE | 2017-06-17 12:51 | HHI.PR ---
Subjective Remarks Went for I&D and wound vac, seen after. patient says she has no pain at this time. feels tired. Non n/v/d/c. No fever or chills. Objective Vitals Vital Signs Date Time Temp Pulse Resp B/P (MAP) Pulse Ox O2 Delivery O2 Flow Rate FiO2 06/17/17 08:00 98.9 63 21 154/77 (102) 97 06/17/17 07:52 98.9 63 20 154/77 (102) 97 06/17/17 04:44 100.0 73 16 186/79 (114) 96 06/17/17 02:42 70 06/17/17 00:55 98.1 77 16 149/74 (99) 98 06/16/17 20:23 97.8 89 20 165/89 (114) 94 06/16/17 16:00 99.6 78 18 169/71 (103) 97 I/O 06/16/17 06/16/17 06/16/17 06/17/17 06/17/17 06/17/17 07:00 15:00 23:00 07:00 15:00 23:00 Intake Total 651 ml 1515 ml 1015 ml Output Total 550 ml 850 ml 1000 ml Balance 101 ml 1515 ml -850 ml 15 ml IV Total 651 ml 1515 ml 1015 ml Output Urine Total 550 ml 850 ml Other 1000 ml Result Diagram: 06/13/17 0654 06/17/17 0724 Imaging Last Impressions Soft Tissue Ultrasound 06/16/17 0000 Signed Impressions: Service Date/Time: Friday, June 16, 2017 11:41 - CONCLUSION: Soft tissue edema/swelling without abscess. Will Hart MD Brain MRI 06/16/17 0000 Signed Impressions: Service Date/Time: Friday, June 16, 2017 12:41 - CONCLUSION: 1. No evidence of acute intracranial pathology. No masses are identified. 2. Opacified right maxillary sinus without aggressive features. Davi David MD Chest X-Ray 06/10/17 1153 Signed Impressions: Service Date/Time: May 12:55 - CONCLUSION: No acute disease. Kwaku Vizcaino MD Maxillofacial CT 06/10/17 0000 Signed Impressions: Service Date/Time: May 14:20 - CONCLUSION: 1. Severe opacification of the right maxillary sinus with thickening of the right maxillary sinus langford suggesting chronic sinus disease. Erosion of the medial wall of the right maxillary sinus. 2. No evidence of fracture. Brian Mendoza MD Head CT 06/10/17 0000 Signed Impressions: Service Date/Time: May 12:19 - CONCLUSION: 1. No acute intracranial abnormality. 2. Opacification of the right maxillary sinus. There is concern for fracture the inferior aspect of the right orbit. CT imaging of the facial bones is warranted. Ramos Ortega MD Objective Remarks GENERAL: This is a well-nourished, well-developed patient, in no apparent distress. Awake and alert. SKIN: Warm and dry. (+)bilateral superficial abrasions on both knees L>R. Hyperpigmented linear old excoriations on anterior lower legs. NECK: Trachea midline. No JVD or lymphadenopathy. Supple, nontender, no meningeal signs. CARDIOVASCULAR: Distant heart sounds without murmurs, gallops, or rubs. RESPIRATORY: Clear to auscultation. Breath sounds equal bilaterally. No wheezes , rales, or rhonchi. GASTROINTESTINAL: Abdomen protuberant, soft, non-tender, nondistended. No guarding. MUSCULOSKELETAL: Extremities without clubbing, cyanosis, or edema. No calf tenderness. : Right groin with fluctuant collection some purulent discharge coming out NEUROLOGICAL: Awake and alert. Able to move all extremities. Nonfocal. Normal speech Procedures I and D left groin abscess with wound vac placement by Dr Porter gen surg A/P Problem List: (1) Sepsis ICD Code: A41.9 - Sepsis, unspecified organism Status: Acute Assessment and Plan 67 yo male with a PMHX significant for HTN and IDDM who presents to [facility] ED with complaints of fever and weakness. Severe sepsis criteria with elevated white count of 20.8, temperature of 101.7, elevated lactic acid level of 2.8, tachycardic with HR 112, elevated RR 30 and renal failure with creatinine of 1.75. Continues to have low-grade fever. Blood culture negative UTI. Urine culture with yeast. Patient with right maxillary sinus with thickening of the right maxillary sinus langford suggesting chronic sinus disease and erosion of the medial wall of the right maxillary sinus. Consult ENT for evaluation Noted with right groin pain, fluid collection poss abscess, US shows abscess, also had purulent discharge. Will consult Wound care. Consult gen surg. S/P I and D left groin abscess with wound vac placement on 06/17/[address] Porter gen surg . Continue Unacyn. Weakness, difficulty walking, s/p fall at home - Patient on IV antibiotics with Vancomycin and Zosyn in the ED.Received IV Cipro and IV Diflucan. Will consult ID for recommendations as patient with persistent fevers. - patient given IVF fluid bolus 3L - Blood cultures negative. Will repeat blood cultures as patient with persistent fevers - CXR personally reviewed and shows no acute cardiopulmonary disease - EKG personally reviewed revealing sinus tachycardia with q waves noted in inferior leads possibly suggesting old infarct - CT head personally reviewed and shows opacification of the right maxillary sinus and concern for fracture of the inferior aspect of the right orbit. - Followup Facial CT personally reviewed and shows severe opacification of the right maxillary sinus with thickening of the right maxillary sinus langford suggesting chronic sinus disease and erosion of the medial wall of the right maxillary sinus. No evidence of fracture. -Patient with persistent fevers ID specialist is consulted. Also consult ENT for evaluation. Patient with fevers, he is a diabetic patient and with sinusitis , candiduria, also now with poss right groin abscess - fall precautions - PT eval/tx ARON on suspected CKD 3. Cr improving. - last Cr in system 03/06/16 1.97 - avoid nephrotoxic agents - Improved discontinue IVF - monitor I&Os - monitor kidney function HTN - BP elevated at ED presentation. Start BILL inhibitor and monitor - requested nurse to complete medical reconciliation and will continue home antihypertensive once med rec updated - Hydralazine and Clonidine prn with parameters - monitor BP DM, insulin dependent. Improving hyperglycemia - requested ED nurse complete med rec.Decrease Levemir to 35 units daily as noted hypoglycemic - continue patient on home Glipizide 20mg daily - accuchecks - ISS - heart healthy diabetic diet Hypokalemia -Status post replacement Constipation. Continue bowel regimen DVT prophylaxis - Bilateral SCD/AMY hose and SQ heparin Discharge Planning Not stable for discharge. Will need rehabilitation versus home healthcare. Discussed with the patient, nurse, ID physician Dr Yun Problem Qualifiers (1) Sepsis: Qualified Codes: A41.9 - Sepsis, unspecified organism Kylie Robles MD Jun 17, 2017 12:51
[2017-06-17] MEDS ORDERED: NEOMYCIN/POLYMYXIN 1 ML G.U. IRRIGANT IRRIGATION ONE (13:00)
[2017-06-17] MEDS ORDERED: *ENALAPRILAT 1.25 MG/ML VIAL PERIprocedural Use ONLY ONE (13:06)
[2017-06-17] MEDS ORDERED: DO NOT ADM ANY ANTICOAGULANT DRUGS PRN (13:30)
[2017-06-17] MEDS: FLUCONAZOLE/NACL 200 MG/100 ML IV SCH (13:47)
--- NOTE | 2017-06-17 14:52 | MB ---
cc: MAYURI DOWELL MD DATE OF CONSULTATION: 06/16/2017 REASON FOR CONSULTATION Groin abscess. HISTORY OF PRESENT ILLNESS The patient is a 67-year-old male who presents with several medical problems including diabetes, hypertension. The patient was admitted due to fevers and not feeling well. The patient was noted with temperature of 100.2 and was noted to have a concerning groin abscess. The patient states he has had longstanding drainage from this area. He states he has never been hospitalized for it, however, it has spontaneously drained multiple times at home. He again reports that his recurrence of drainage and it is more significant than it has been in the past. PAST MEDICAL HISTORY Hypertension, diabetes. PAST SURGICAL HISTORY Denies any surgery history. SOCIAL HISTORY Reports smoking half-pack per day. Denies ETOH or IVDA. ALLERGIES NO KNOWN DRUG ALLERGIES. FAMILY HISTORY No diabetes or hypertension. REVIEW OF SYSTEMS GENERAL: Complains of fevers. HEENT: Denies eye pain, ear pain. NECK: Denies swelling or pain. LUNGS: Denies cough, wheeze. HEART: Denies palpitations, chest pain. ABDOMEN: Denies abdominal pain. GROIN: Complains of drainage and pain in the lower groin area. : As above. INTEGUMENT: New abscess cavity in groin. PHYSICAL EXAMINATION GENERAL: The patient is in no acute distress. VITAL SIGNS: Temperature 99.8, pulse 80, respirations 18, blood pressure 106/65, saturation 98%. HEENT: PERRLA, pupils round and reactive. NECK: Supple. Trachea is midline. LUNGS: Clear to auscultation, bilateral expansion. HEART: S1-S2, regular rhythm. ABDOMEN: Soft, nontender, nondistended. GROIN: Large area of cellulitic abscess cavity with open areas x2 with drainage of pus. EXTREMITIES: Warm, well-perfused. NEUROLOGIC: 5/5 motor all extremities, answering questions, however, a poor historian. LABORATORY AND DIAGNOSTIC DATA Recent WBC 14.3, hemoglobin 13.1, hematocrit 39.7, platelets 124, sodium 137, potassium 3.5, chloride 107, BUN 12, creatinine 1, glucose 82. Imaging reviewed by myself. Ultrasound without evidence of significant abscess cavity. ASSESSMENT The patient is a 67-year-old male with groin abscess on right. PLAN After full workup the patient noted with groin abscess. The patient is currently on IV antibiotics, IV pain control and on a diabetic diet. We will make the patient n.p.o. in preparation for OR tomorrow with possible vac placement and washout and debridement. Discussed with the patient in detail, states understanding and agrees. Will proceed again for operative intervention. Thank you for the consultation. MD VINCENZO Gonzalez/DEBBIE /1:54 PM /2:24 PM
--- NOTE | 2017-06-17 14:53 | PD.WCN.NOT ---
Wound Consult Description: Consult for right groin wound per Dr Robles Communicated with: MIQUEL Yost RN Recommendation: BRIDGE TRAC PAD TO RIGHT THIGH WITH NEXT WOUND VAC CHANGE Additional Information: Called to patient bedside for wound VAC assessment. Machine alarming and showing 25mmHg and going up to 50mmHg and back down again. Settings were currently set at 125mmHg low continuous, however the machine was not working properly and constantly alarming. Patient was assisted into a position for right groin to be visualized for VAC dressing assessment. When patient was able to cooperate with stated pain, into a position with 2 person assist for senior mortgage underwriter to be able to see the wound VAC dressing it was apparent that the trac pad needed to be taken off for assessment of dressing since no leaks were found. The machine was turned off at this time. Once trac pad was removed from wound bed on right groin fold, the trac pad was visualized to be absent from contact with black foam. It appears that the wound was filled with black granufoam. ~ 1cm of black foam was exposed at the surface where the trac pad had been placed yet did not come into contact with the granufoam placed. Trac pad did not have the sufficient amount of surface contact with black granufoam for the machine to work properly (entire trac pad torres martinez has to come into contact with foam for sensors to work properly for suction). There was a piece of black granufoam found on top of the proximal side of the dressing and secured in placed with VAC drape that was not in contact with anything except the wound VAC dressing itself. This was removed and placed over the exposed 1cm of black granufoam to allow for trac pad placement. The trac pad was then secured with VAC drape reinforcing the dressing in place. No black foam was removed from the wound. The machine was turned on and suction began working as ordered without leaks. Patient tolerated procedure fairly and stated that we were poking and prodding him. It was explained that we were not trying to cause harm to him, however this dressing was not in an optimal place for trouble shooting the problem and next time we would place the trac pad more comfortably for him. Neg Pressure Wound Therapy Wound Location Wound Location: Right groin Settings Suction: 125 mmHg, Continuous Intensity: Low Other Information: Mushroomed Foam type: Black Number of pieces: other (unknown) Pounds,Becky [facility] Jun 17, 2017 14:53
[2017-06-17] MEDS ORDERED: AMPICILLIN-SULBACTAM INJ 1,500 MG VIAL IM SCH (18:00)
[2017-06-17] MEDS: ACETAMINOPHEN/HYDROcodone 325 MG/7.5 MG TAB PO PRN (20:05)
[2017-06-17] MEDS: AMPICILLIN-SULBACTAM INJ 1,500 MG in SODIUM CHLORIDE 0.9% INJ 100 ML IV SCH (20:26)
--- NOTE | 2017-06-17 23:06 | MP ---
cc: MAYURI PORTER MD DATE OF SURGERY 06/17/17 PREOPERATIVE DIAGNOSIS Right groin abscess. POSTOPERATIVE DIAGNOSIS Right groin abscess PROCEDURE PERFORMED AT Incision and drainage of right groin abscess with VAC placement. SURGEON Dr. Nelda Porter [employer] B[employer] MECH[employer]IC See OR sheet ANESTHESIA GETA. IV FLUIDS See anesthesia sheet ESTIMATED BLOOD LOSS 10 mL. DRAINS VAC placement. COMPLICATIONS None. WOUND CLASSIFICATION Dirty infected PATHOLOGY SPECIMEN Purulent drainage sent for cultures FINDINGS Large abscess cavity to right posterior groin VAC with good seal. INDICATION The patient is a 67-year-old male who presents with diabetes, hypertension and fevers noted to have a groin abscess needing and operative debridement and intervention. PROCEDURE IN DETAIL The patient was taken to the operating suite, placed in the lithotomy position. He was prepped and draped in usual sterile fashion after induction of general endotracheal anesthesia. Brief time-out done stating correct patient, procedure and surgical site and all were in agreement with this. Attention was directed to the groin where there was noted to be two open drain abscess cavities. These were cultured and sent for and the wounds were opened up with electro Bovie cautery and irrigated with multiple aliquots of normal saline. I nterdigitation was done in order to break up any loculations and define the abscess cavity. The abscess cavity was noted to be producing significantly deep approximately 7 cm x 6 cm and 3 cm wide. After full irrigation debridement and hemostasis with Electro Bovie cautery, VAC sponge was obtained and placed in the cavity. Two sponges were placed, one superior and one inferior to this through both opening draining sites. The skin was then cleaned with Mastisol and plastic was placed followed by a track pad. Bag noted with good suction. The patient tolerated the procedure well. There was no intraoperative complication. The patient was extubated, taken stable to the PACU. MD VINCENZO Gonzalez/ /2:00 PM /10:52 PM
[2017-06-18] VITALS (9 sets, daily range): BP systolic 152–194; BP diastolic 65–81; PULSE 68–83; RESP 19–24; TEMP 98–99.9; O2SAT 94–99
[2017-06-18] MEDS: AMPICILLIN-SULBACTAM INJ 1,500 MG in SODIUM CHLORIDE 0.9% INJ 100 ML IV SCH ×4 (02:19→18:45)
[2017-06-18] MEDS: ACETAMINOPHEN/HYDROcodone 325 MG/7.5 MG TAB PO PRN ×4 (02:22→22:06)
[2017-06-18] MEDS: glipiZIDE 10 MG TAB PO SCH (08:45)
[2017-06-18] MEDS: INSULIN DETEMIR 100 UNITS/ML VIAL SQ SCH (08:45)
[2017-06-18] MEDS: DOCUSATE SODIUM 50 MG/SENNA 8.6 MG TAB PO SCH ×2 (08:46→22:06)
[2017-06-18] MEDS: HEPARIN SODIUM - SQ 10,000 UNITS/ML VIAL SQ SCH ×2 (08:47→22:08)
[2017-06-18] MEDS: LISINOPRIL 5 MG TAB PO SCH (08:47)
[2017-06-18] MEDS: SODIUM CHLORIDE 0.9% FLUSH 10 ML FLUSH IV FLUSH SCH ×2 (09:00→22:08)
[2017-06-18] MEDS: INSULIN ASPART SUPPLEMENTAL SCALE SQ SCH ×4 (09:33→22:20)
--- NOTE | 2017-06-18 12:18 | HHI.PR ---
Subjective Remarks In the chair eating. Patient appears improved today, he is more awake and alert. No fever or chills. Says pain in his groin is controlled by mes. No n/v/d /c. Objective Vitals Vital Signs Date Time Temp Pulse Resp B/P (MAP) Pulse Ox O2 Delivery O2 Flow Rate FiO2 06/18/17 12:00 98.1 71 19 152/65 (94) 94 06/18/17 11:37 98.1 71 19 152/65 (94) 94 06/18/17 08:00 98.2 80 20 169/77 (107) 99 06/18/17 07:44 98.2 80 20 169/77 (107) 99 06/18/17 00:00 98.8 70 22 166/70 (102) 98 06/17/17 20:00 100.0 71 24 174/75 (108) 99 06/17/17 16:00 98.4 80 20 147/65 (92) 91 06/17/17 13:48 99.1 79 19 165/72 (103) 97 06/17/17 13:25 98.2 73 16 158/77 (104) 97 Room Air 06/17/17 13:15 75 16 172/80 (110) 96 Room Air 06/17/17 13:00 74 16 185/86 (119) 96 Room Air 06/17/17 12:45 72 15 178/80 (112) 95 Room Air 06/17/17 12:30 78 15 171/74 (106) 100 Nasal Cannula 3 06/17/17 12:23 97.7 82 20 160/68 (98) 99 Nasal Cannula 3 I/O 06/17/17 06/17/17 06/17/17 06/18/17 06/18/17 06/18/17 07:00 15:00 23:00 07:00 15:00 23:00 Intake Total 1015 ml 340 ml 480 ml Output Total 850 ml 1000 ml 825 ml 1100 ml Balance -850 ml 15 ml -485 ml -620 ml Intake Oral 240 ml 480 ml IV Total 1015 ml 100 ml Output Urine Total 850 ml 825 ml 1100 ml Other 1000 ml # Bowel Movements 0 0 Result Diagram: 06/17/17 0724 Imaging Last Impressions Soft Tissue Ultrasound 06/16/17 0000 Signed Impressions: Service Date/Time: Friday, June 16, 2017 11:41 - CONCLUSION: Soft tissue edema/swelling without abscess. Will Hart MD Brain MRI 06/16/17 0000 Signed Impressions: Service Date/Time: Friday, June 16, 2017 12:41 - CONCLUSION: 1. No evidence of acute intracranial pathology. No masses are identified. 2. Opacified right maxillary sinus without aggressive features. Davi David MD Chest X-Ray 06/10/17 1153 Signed Impressions: Service Date/Time: May 12:55 - CONCLUSION: No acute disease. Kwaku Vizcaino MD Maxillofacial CT 06/10/17 0000 Signed Impressions: Service Date/Time: May 14:20 - CONCLUSION: 1. Severe opacification of the right maxillary sinus with thickening of the right maxillary sinus langford suggesting chronic sinus disease. Erosion of the medial wall of the right maxillary sinus. 2. No evidence of fracture. Brian Mendoza MD Head CT 06/10/17 0000 Signed Impressions: Service Date/Time: May 12:19 - CONCLUSION: 1. No acute intracranial abnormality. 2. Opacification of the right maxillary sinus. There is concern for fracture the inferior aspect of the right orbit. CT imaging of the facial bones is warranted. Ramos Ortega MD Objective Remarks GENERAL: This is a well-nourished, well-developed patient, in no apparent distress. Awake and alert. SKIN: Warm and dry. (+)bilateral superficial abrasions on both knees L>R. Hyperpigmented linear old excoriations on anterior lower legs. NECK: Trachea midline. No JVD or lymphadenopathy. Supple, nontender, no meningeal signs. CARDIOVASCULAR: Distant heart sounds without murmurs, gallops, or rubs. RESPIRATORY: Clear to auscultation. Breath sounds equal bilaterally. No wheezes , rales, or rhonchi. GASTROINTESTINAL: Abdomen protuberant, soft, non-tender, nondistended. No guarding. MUSCULOSKELETAL: Extremities without clubbing, cyanosis, or edema. No calf tenderness. : Right groin with fluctuant collection some purulent discharge coming out NEUROLOGICAL: Awake and alert. Able to move all extremities. Nonfocal. Normal speech Procedures I and D left groin abscess with wound vac placement by Dr German gen surg A/P Problem List: (1) Sepsis ICD Code: A41.9 - Sepsis, unspecified organism Status: Acute Assessment and Plan 67 yo male with a PMHX significant for HTN and IDDM who presents to [facility] ED with complaints of fever and weakness. Severe sepsis criteria with elevated white count of 20.8, temperature of 101.7, elevated lactic acid level of 2.8, tachycardic with HR 112, elevated RR 30 and renal failure with creatinine of 1.75. Continues to have low-grade fever. Blood culture negative UTI. Urine culture with yeast. Patient with right maxillary sinus with thickening of the right maxillary sinus langford suggesting chronic sinus disease and erosion of the medial wall of the right maxillary sinus. Consult ENT for evaluation Noted with right groin pain, fluid collection poss abscess, US shows abscess, also had purulent discharge. Will consult Wound care. Consult gen surg. S/P I and D left groin abscess with wound vac placement on 06/17/[address] Porter gen surg . Continue Unacyn. Weakness, difficulty walking, s/p fall at home - Patient on IV antibiotics with Vancomycin and Zosyn in the ED.Received IV Cipro and IV Diflucan. Will consult ID for recommendations as patient with persistent fevers. - patient given IVF fluid bolus 3L - Blood cultures negative. Will repeat blood cultures as patient with persistent fevers - CXR personally reviewed and shows no acute cardiopulmonary disease - EKG personally reviewed revealing sinus tachycardia with q waves noted in inferior leads possibly suggesting old infarct - CT head personally reviewed and shows opacification of the right maxillary sinus and concern for fracture of the inferior aspect of the right orbit. - Followup Facial CT personally reviewed and shows severe opacification of the right maxillary sinus with thickening of the right maxillary sinus langford suggesting chronic sinus disease and erosion of the medial wall of the right maxillary sinus. No evidence of fracture. -Patient with persistent fevers ID specialist is consulted. Also consult ENT for evaluation. Patient with fevers, he is a diabetic patient and with sinusitis , candiduria, also now with poss right groin abscess - fall precautions - PT eval/tx ARON on suspected CKD 3. Cr improving. - last Cr in system 03/06/16 1.97 - avoid nephrotoxic agents - Improved discontinue IVF - monitor I&Os - monitor kidney function HTN - BP elevated at ED presentation. Start BILL inhibitor and monitor - requested nurse to complete medical reconciliation and will continue home antihypertensive once med rec updated - Hydralazine and Clonidine prn with parameters - monitor BP DM, insulin dependent. Improving hyperglycemia - requested ED nurse complete med rec.Decrease Levemir to 35 units daily as noted hypoglycemic - continue patient on home Glipizide 20mg daily - accuchecks - ISS - heart healthy diabetic diet Hypokalemia -Status post replacement Constipation. Continue bowel regimen DVT prophylaxis - Bilateral SCD/AMY hose and SQ heparin Discharge Planning Not stable for discharge. Will need rehabilitation versus home healthcare. Discussed with the patient, nurse, ID Dr Yun Problem Qualifiers (1) Sepsis: Qualified Codes: A41.9 - Sepsis, unspecified organism Kylie Robles MD Jun 18, 2017 12:18
--- NOTE | 2017-06-18 13:09 | HHI.IDPN ---
Subjective Subjective Remarks is a 67 y.o AAM with PMHx of chronic sinusitis never seen by ENT self reports. Also PMHx significant for DM, HTN. He presents to the ED with fever and generalized weakness. Patient reports sudden onset of "not feeling well" this morning with associated weakness and inability to walk resulting in fall. Patient denies any dizziness or lightheadedness prior to fall. He denies any loss of consciousness or injury to the head. Patient denies any fever or chills at home but EMS recorded a temperature of 102.0. Patient denies any recent illness, ill contacts or recent travel. He denies any cuts, bites or open sores. Patient denies any headache, runny nose or cough. Patient denies any recent change in medications. Patient denies any complaints of pain including no chest pain or abdominal pain. He denies any urinary urgency, frequency or dysuria. He denies any diarrhea. He denies any recent antibiotic use. Patient denies any bleeding. Patient denies any history of stroke or [place]. In the ED, patient has temperature of 101.7, elevated white count of 20.8 and elevated lactic acid level of 2.8. He is tachycardiac with a HR of 112. Respiratory rate elevated at 30. Troponin was 0.02. Creatinine is elevated at 1.75. CXR shows no acute cardiopulmonary process. EKG with sinus tachycardia. CT head shows opacification of the right maxillary sinus and concern for fracture of the inferior aspect of the right orbit. Followup Facial CT shows severe opacification of the right maxillary sinus with thickening of the right maxillary sinus langford suggesting chronic sinus disease and erosion of the medial wall of the right maxillary sinus. No evidence of fracture. ID consulted for evaluation and Mment of Sepsis, UTI. Overnight events reviewed No fevers No rash No diarrhea Complains of discomfort in the groin area. Antibiotics Unasyn IV Vanco IV diflucan Lines Line sites with no e.o infection Past Medical History reviewed Allergies: Coded Allergies: No Known Allergies (Verified , 06/10/17) Objective . Vital Signs Date Time Temp Pulse Resp B/P (MAP) Pulse Ox O2 Delivery O2 Flow Rate FiO2 06/18/17 13:03 99 06/18/17 12:00 98.1 71 19 152/65 (94) 94 06/18/17 11:37 98.1 71 19 152/65 (94) 94 06/18/17 08:00 98.2 80 20 169/77 (107) 99 06/18/17 07:44 98.2 80 20 169/77 (107) 99 06/18/17 00:00 98.8 70 22 166/70 (102) 98 06/17/17 20:00 100.0 71 24 174/75 (108) 99 06/17/17 16:00 98.4 80 20 147/65 (92) 91 06/17/17 13:48 99.1 79 19 165/72 (103) 97 06/17/17 13:25 98.2 73 16 158/77 (104) 97 Room Air 06/17/17 13:15 75 16 172/80 (110) 96 Room Air . Laboratory Tests Test 06/17/17 07:24 Creatinine 0.88 MG/DL Estimat Glomerular Filtration Rate 105 ML/MIN Microbiology Date/Time Source Procedure Growth Status 06/17/17 11:52 Fluid Other Fungal Smear - Final NO FUNGAL ELEMENTS SEEN. Resulted 06/17/17 11:52 Fluid Other Fungal Culture Pending Resulted 06/17/17 11:52 Fluid Other Acid Fast Stain Pending Received 06/17/17 11:52 Fluid Other Mycobacterial Culture Pending Received 06/17/17 11:52 Fluid Other Gram Stain - Final Resulted 06/17/17 11:52 Fluid Other Body Fluid Culture Pending Resulted 06/16/17 13:51 Wound Groin Gram Stain - Final Resulted 06/16/17 13:51 Wound Culture - Preliminary Gram Negative Amrit Yeast-Id To Follow Resulted Imaging Last Impressions Soft Tissue Ultrasound 06/16/17 0000 Signed Impressions: Service Date/Time: Friday, June 16, 2017 11:41 - CONCLUSION: Soft tissue edema/swelling without abscess. Will Hart MD Brain MRI 06/16/17 0000 Signed Impressions: Service Date/Time: Friday, June 16, 2017 12:41 - CONCLUSION: 1. No evidence of acute intracranial pathology. No masses are identified. 2. Opacified right maxillary sinus without aggressive features. Davi David MD Chest X-Ray 06/10/17 1153 Signed Impressions: Service Date/Time: May 12:55 - CONCLUSION: No acute disease. Kwaku Vizcaino MD Maxillofacial CT 06/10/17 0000 Signed Impressions: Service Date/Time: May 14:20 - CONCLUSION: 1. Severe opacification of the right maxillary sinus with thickening of the right maxillary sinus langford suggesting chronic sinus disease. Erosion of the medial wall of the right maxillary sinus. 2. No evidence of fracture. Brian Mendoza MD Head CT 06/10/17 0000 Signed Impressions: Service Date/Time: May 12:19 - CONCLUSION: 1. No acute intracranial abnormality. 2. Opacification of the right maxillary sinus. There is concern for fracture the inferior aspect of the right orbit. CT imaging of the facial bones is warranted. Ramos Ortega MD Physical Exam GENERAL: This is a well-nourished, well-developed patient, in no apparent distress. SKIN: No rashes, ecchymoses or lesions. Cool and dry. HEAD: Atraumatic. Normocephalic. No temporal or scalp tenderness. EYES: Pupils equal round and reactive. Extraocular motions intact. No scleral icterus. No injection or drainage. ENT: Nose without bleeding, purulent drainage or septal hematoma. Throat without erythema, tonsillar hypertrophy or exudate. Uvula midline. Airway patent. NECK: Trachea midline. No JVD or lymphadenopathy. Supple, nontender, no meningeal signs. CARDIOVASCULAR: Regular rate and rhythm without murmurs, gallops, or rubs. RESPIRATORY: Clear to auscultation. Breath sounds equal bilaterally. No wheezes , rales, or rhonchi. GASTROINTESTINAL: Abdomen soft, non-tender, nondistended. No hepato-splenomegaly , or palpable masses. No guarding. MUSCULOSKELETAL: Extremities without clubbing, cyanosis, or edema. No joint tenderness, effusion, or edema noted. No calf tenderness. Negative Homans sign bilaterally. NEUROLOGICAL: Awake and alert. Cranial nerves II through XII intact. Motor and sensory grossly within normal limits. Five out of 5 muscle strength in all muscle groups. Normal speech. Psych cooperative Groin right side with wound vac in place. IV line sites with no e.o infection Assessment & Plan Remarks Sepsis ongoing right groin abscess. Gram negative amrit and yeast in wound culture intraop. Right maxillary chronic sinusitis. Rule out mucormycosis. DM as risk factor for mucor. Petra glabrata in urine. Fevers persist despite diflucan. DM uncontrolled. Recs continue Unasyn IV Continue Vanco IV(target 10-15) Continue Diflucan for now. [email or web address] patient and RN. Follow cultures Follow clinically Sherita Yun MD Jun 18, 2017 13:09
[2017-06-18] MEDS: FLUCONAZOLE/NACL 200 MG/100 ML IV SCH (13:35)
[2017-06-18] MEDS: SODIUM CHLOR 0.9% 1000 ML INJ 1,000 ML IV SCH (13:35)
--- NOTE | 2017-06-18 15:49 | HHI.PR ---
Subjective Subjective Notes Resting in bed Student Nurse at bedside Objective Vitals/I&O Vital Signs Date Time Temp Pulse Resp B/P (MAP) Pulse Ox O2 Delivery O2 Flow Rate FiO2 06/18/17 13:03 99 06/18/17 12:00 98.1 71 19 152/65 (94) 06/17/17 13:25 Room Air 06/17/17 12:30 3 Labs Date/Time Source Procedure Growth Status 06/10/17 12:15 Blood Peripheral Aerobic Blood Culture - Final NO GROWTH IN 5 DAYS Complete 06/10/17 12:15 Blood Peripheral Anaerobic Blood Culture - Final NO GROWTH IN 5 DAYS Complete 06/17/17 11:52 Fluid Other Fungal Smear - Final NO FUNGAL ELEMENTS SEEN. Resulted 06/17/17 11:52 Fluid Other Fungal Culture Pending Resulted 06/10/17 12:35 Nasal Aspirate Influenza Types A,B Antigen (MINOO) - Final NEGATIVE FOR FLU A AND B ANTIGEN.... Complete 06/10/17 22:05 Urine Catheterized Urine Urine Culture - Final Petra Glabrata Complete 06/16/17 13:51 Wound Groin Gram Stain - Final Resulted 06/16/17 13:51 Wound Culture - Preliminary Gram Negative Amrit Yeast-Id To Follow Resulted Cardiovascular: Regular Lungs: Clear Abdomen: Non-distended, Non-tender Narrative Exam LEFT groin ---s/p I&D with Wound Vac in place; good seal A/P Assessment and Plan 67 year old male POD1 I&D RIGHT groin; Wound Vac placement -Continue Wound Vac; plan to change Wednesday -Pain control -Regular diet -Antibiotics per primary team -General Surgery will see peripherally over the weekend Attending Statement s/p i and d with vac pt seen at bedside wound care wound vac Attestation The exam, history, and the medical decision-making described in the above note were completed with the assistance of the mid-level provider. I reviewed and agree with the findings presented. I attest that I had a [id number] encounter with the patient on the same day, and personally performed and documented my assessment and findings in the medical record. Basia Jackson Jun 18, 2017 15:49 Shahid Porter MD Jun 30, 2017 12:57
[2017-06-18] MEDS ORDERED: PHARMACY ORDERED LAB ONE (17:45)
[2017-06-18] MEDS: cloNIDine HCL 0.1 MG TAB PO PRN (22:06)
[2017-06-19] VITALS (7 sets, daily range): BP systolic 149–193; BP diastolic 61–79; PULSE 57–82; RESP 16–22; TEMP 97.5–98.6; O2SAT 97–99
[2017-06-19] MEDS: SODIUM CHLOR 0.9% 1000 ML INJ 1,000 ML IV SCH ×4 (01:13→22:46)
[2017-06-19] MEDS: AMPICILLIN-SULBACTAM INJ 1,500 MG in SODIUM CHLORIDE 0.9% INJ 100 ML IV SCH ×3 (01:13→12:15)
[2017-06-19] MEDS: cloNIDine HCL 0.1 MG TAB PO PRN (05:06)
[2017-06-19] MEDS: ACETAMINOPHEN/HYDROcodone 325 MG/7.5 MG TAB PO PRN ×3 (05:06→15:23)
[2017-06-19] MEDS: INSULIN ASPART SUPPLEMENTAL SCALE SQ SCH ×4 (08:00→20:29)
[2017-06-19] MEDS: SODIUM CHLORIDE 0.9% FLUSH 10 ML FLUSH IV FLUSH SCH ×2 (09:00→20:31)
[2017-06-19 09:10] LABS: AUTOMATED NEUTROPHIL # 7.1 TH/MM3 (1.8-7.7); BASOPHIL # 0.1 TH/MM3 (0-0.2); BASOPHIL % 0.9 % (0.0-2.0); EOSINOPHIL # 0.5 TH/MM3 (0-0.4); EOSINOPHIL % 4.9 % (0.0-4.0); HEMATOCRIT 35.4 % (39.0-51.0); HEMO FLAGS DIFF FINAL; LYMPH % 17.9 % (9.0-44.0); LYMPHOCYTE # 1.9 TH/MM3 (1.0-4.8); MEAN CELL VOLUME 93.3 FL (80.0-100.0); MEAN CORPUSCULAR HEMOGLOBIN 31.1 PG (27.0-34.0); MEAN CORPUSCULAR HGB CONC 33.3 % (32.0-36.0); MONO % 8.8 % (0.0-8.0); NEUT % 67.5 % (16.0-70.0); PLATELET COUNT 270 TH/MM3 (150-450); RED BLOOD COUNT 3.79 MIL/MM3 (4.50-5.90); RED CELL DISTRIBUTION WIDTH 14.3 % (11.6-17.2); WHITE BLOOD COUNT 10.6 TH/MM3 (4.0-11.0)
[2017-06-19] MEDS: HEPARIN SODIUM - SQ 10,000 UNITS/ML VIAL SQ SCH ×2 (09:33→20:29)
[2017-06-19] MEDS: glipiZIDE 10 MG TAB PO SCH (09:33)
[2017-06-19] MEDS: LISINOPRIL 5 MG TAB PO SCH (09:34)
[2017-06-19] MEDS: DOCUSATE SODIUM 50 MG/SENNA 8.6 MG TAB PO SCH ×2 (09:34→20:29)
[2017-06-19] MEDS: INSULIN DETEMIR 100 UNITS/ML VIAL SQ SCH (09:41)
[2017-06-19 09:44] LABS: BICARBONATE 20.3 MEQ/L (21.0-32.0); POTASSIUM 3.5 MEQ/L (3.5-5.1)
--- NOTE | 2017-06-19 14:07 | HHI.PR ---
Subjective Remarks In bed, feels improved today. No fever or chills. Groin wound with less pain. Wound vac in place. No n/v/d/c. Eating fairly well. No n/v/d/c. Objective Vitals Vital Signs Date Time Temp Pulse Resp B/P (MAP) Pulse Ox O2 Delivery O2 Flow Rate FiO2 06/19/17 12:00 97.8 57 16 149/61 (90) 98 06/19/17 10:11 97 21 06/19/17 08:00 98.4 71 17 160/75 (103) 97 06/19/17 04:00 98.4 74 22 184/79 (114) 98 06/19/17 00:00 98.6 71 22 153/72 (99) 98 06/18/17 22:00 83 06/18/17 20:00 99.9 71 24 194/81 (118) 98 06/18/17 16:00 98.0 68 19 178/73 (108) 97 I/O 06/18/17 06/18/17 06/18/17 06/19/17 06/19/17 06/19/17 06:59 14:59 22:59 06:59 14:59 22:59 Intake Total 480 ml 1200 ml 1720 ml 1075 ml 1000 ml Output Total 1100 ml 830 ml 1400 ml 300 ml Balance -620 ml 1200 ml 890 ml -325 ml 700 ml Intake Oral 480 ml 620 ml 240 ml IV Total 1200 ml 1100 ml 835 ml 1000 ml Output Urine Total 1100 ml 680 ml 1350 ml 300 ml Drainage Total 150 ml 50 ml # Voids 1 # Bowel Movements 0 0 0 Result Diagram: 06/19/1781906/19/17819 Imaging Last Impressions Soft Tissue Ultrasound 06/16/17 0000 Signed Impressions: Service Date/Time: Friday, June 16, 2017 11:41 - CONCLUSION: Soft tissue edema/swelling without abscess. Will Hart MD Brain MRI 06/16/17 0000 Signed Impressions: Service Date/Time: Friday, June 16, 2017 12:41 - CONCLUSION: 1. No evidence of acute intracranial pathology. No masses are identified. 2. Opacified right maxillary sinus without aggressive features. Davi David MD Chest X-Ray 06/10/17 1153 Signed Impressions: Service Date/Time: May 12:55 - CONCLUSION: No acute disease. Kwaku Vizcaino MD Maxillofacial CT 06/10/17 0000 Signed Impressions: Service Date/Time: May 14:20 - CONCLUSION: 1. Severe opacification of the right maxillary sinus with thickening of the right maxillary sinus langford suggesting chronic sinus disease. Erosion of the medial wall of the right maxillary sinus. 2. No evidence of fracture. Brian Mendoza MD Head CT 06/10/17 0000 Signed Impressions: Service Date/Time: May 12:19 - CONCLUSION: 1. No acute intracranial abnormality. 2. Opacification of the right maxillary sinus. There is concern for fracture the inferior aspect of the right orbit. CT imaging of the facial bones is warranted. Ramos Ortega MD Objective Remarks GENERAL: This is a well-nourished, well-developed patient, in no apparent distress. Awake and alert. SKIN: Warm and dry. (+)bilateral superficial abrasions on both knees L>R. Hyperpigmented linear old excoriations on anterior lower legs. NECK: Trachea midline. No JVD or lymphadenopathy. Supple, nontender, no meningeal signs. CARDIOVASCULAR: Distant heart sounds without murmurs, gallops, or rubs. RESPIRATORY: Clear to auscultation. Breath sounds equal bilaterally. No wheezes , rales, or rhonchi. GASTROINTESTINAL: Abdomen protuberant, soft, non-tender, nondistended. No guarding. MUSCULOSKELETAL: Extremities without clubbing, cyanosis, or edema. No calf tenderness. : Right groin with fluctuant collection some purulent discharge coming out NEUROLOGICAL: Awake and alert. Able to move all extremities. Nonfocal. Normal speech Procedures I and D left groin abscess with wound vac placement by Dr Porter gen surg A/P Problem List: (1) Sepsis ICD Code: A41.9 - Sepsis, unspecified organism Status: Acute Assessment and Plan 67 yo male with a PMHX significant for HTN and IDDM who presents to [facility] ED with complaints of fever and weakness. Severe sepsis criteria with elevated white count of 20.8, temperature of 101.7, elevated lactic acid level of 2.8, tachycardic with HR 112, elevated RR 30 and renal failure with creatinine of 1.75. Continues to have low-grade fever. Blood culture negative UTI. Urine culture with yeast. Patient with right maxillary sinus with thickening of the right maxillary sinus langford suggesting chronic sinus disease and erosion of the medial wall of the right maxillary sinus. Consult ENT for evaluation Noted with right groin pain, fluid collection poss abscess, US shows abscess, also had purulent discharge. Will consult Wound care. Consult gen surg. S/P I and D left groin abscess with wound vac placement on 06/17/[address] Porter gen surg . Continue Unacyn. Id ff Weakness, difficulty walking, s/p fall at home - Patient on IV antibiotics with Vancomycin and Zosyn in the ED.Received IV Cipro and IV Diflucan. Will consult ID for recommendations as patient with persistent fevers. - patient given IVF fluid bolus 3L - Blood cultures negative. Will repeat blood cultures as patient with persistent fevers - CXR personally reviewed and shows no acute cardiopulmonary disease - EKG personally reviewed revealing sinus tachycardia with q waves noted in inferior leads possibly suggesting old infarct - CT head personally reviewed and shows opacification of the right maxillary sinus and concern for fracture of the inferior aspect of the right orbit. - Followup Facial CT personally reviewed and shows severe opacification of the right maxillary sinus with thickening of the right maxillary sinus langford suggesting chronic sinus disease and erosion of the medial wall of the right maxillary sinus. No evidence of fracture. -Patient with persistent fevers ID specialist is consulted. Also consult ENT for evaluation. Patient with fevers, he is a diabetic patient and with sinusitis , candiduria, also now with poss right groin abscess - fall precautions - PT eval/tx ARON on suspected CKD 3. Cr improving. - last Cr in system 03/06/16 1.97 - avoid nephrotoxic agents - Improved discontinue IVF - monitor I&Os - monitor kidney function HTN - BP elevated at ED presentation. Start BILL inhibitor and monitor - requested nurse to complete medical reconciliation and will continue home antihypertensive once med rec updated - Hydralazine and Clonidine prn with parameters - monitor BP DM, insulin dependent. Improving hyperglycemia - requested ED nurse complete med rec.Decrease Levemir to 35 units daily as noted hypoglycemic - continue patient on home Glipizide 20mg daily - accuchecks - ISS - heart healthy diabetic diet Hypokalemia -Status post replacement Constipation. Continue bowel regimen DVT prophylaxis - Bilateral SCD/AMY hose and SQ heparin Discharge Planning Not stable for discharge. Will need rehabilitation versus home healthcare. Discussed with the patient, nurse Problem Qualifiers (1) Sepsis: Qualified Codes: A41.9 - Sepsis, unspecified organism Kylie Robles MD Jun 19, 2017 14:07
[2017-06-19] MEDS: cefTRIAXone INJ 2,000 MG in SODIUM CHLORIDE 0.9% INJ 100 ML IV SCH (15:22)
[2017-06-19] MEDS: metroNIDAZOLE 500 MG TAB PO SCH ×2 (15:27→20:29)
[2017-06-20] VITALS (8 sets, daily range): BP systolic 147–196; BP diastolic 71–87; PULSE 63–79; RESP 17–18; TEMP 96.6–98.3; O2SAT 97–100
--- NOTE | 2017-06-20 05:56 | RADRPT ---
EXAM DATE/TIME: 06/20/2017 05:31 [place] COMPARISON: No previous studies available for comparison. INDICATIONS : Patient fell, hit back of neck on walker. Swelling. RADIATION DOSE: 33.01 CTDIvol (mGy) MEDICAL HISTORY : None SURGICAL HISTORY : None. ENCOUNTER: Initial ACUITY: 1 day PAIN SCORE: 10/10 LOCATION: Posterior neck. TECHNIQUE: Volumetric scanning of the neck was performed. Using automated exposure control and adjustment of th e mA and/or kV according to patient size, radiation dose was kept as low as reasonably achievable to obtain optimal diagnostic quality images. DICOM format image data is available electronically for re view and comparison. FINDINGS: NASOPHARYNX: The nasopharyngeal airway has a normal configuration. No mucosal thickening or mass is seen. OROPHARYNX: The intrinsic muscles of the tongue are symmetric. The tonsillar pillars are intact. The prevertebr al soft tissues are not thickened. LARYNX: The supraglottic, glottic, and infraglottic structures are intact. PARAPHARYNGEAL: The parapharyngeal space is intact. SALIVARY GLANDS: The parotid and submandibular glands are intact. LYMPH NODES: No enlarged or necrotic-appearing nodes. THYROID: Homogeneous enhancement without evidence of nodule. BONES: Degenerative changes of the cervical spine. Calcified plaque involving the carotid arteries bilaterally. CONCLUSION: 1. No acute abnormality. Ever Michelle Jr., MD on June 20, 2017 at 5:52 Board Certified Radiologist. This report was verified electronically.
[2017-06-20] MEDS: metroNIDAZOLE 500 MG TAB PO SCH ×3 (06:15→22:25)
[2017-06-20] MEDS: ACETAMINOPHEN/HYDROcodone 325 MG/7.5 MG TAB PO PRN ×4 (06:16→18:34)
[2017-06-20] MEDS: INSULIN ASPART SUPPLEMENTAL SCALE SQ SCH ×4 (08:00→20:32)
[2017-06-20] MEDS: SODIUM CHLORIDE 0.9% FLUSH 10 ML FLUSH IV FLUSH SCH ×2 (09:00→20:35)
[2017-06-20] MEDS: SODIUM CHLOR 0.9% 1000 ML INJ 1,000 ML IV SCH ×2 (09:08→20:39)
[2017-06-20] MEDS: FLUCONAZOLE 100 MG TAB PO SCH (09:09)
[2017-06-20] MEDS: INSULIN DETEMIR 100 UNITS/ML VIAL SQ SCH (09:09)
[2017-06-20] MEDS: HEPARIN SODIUM - SQ 10,000 UNITS/ML VIAL SQ SCH ×2 (09:09→20:32)
[2017-06-20] MEDS: DOCUSATE SODIUM 50 MG/SENNA 8.6 MG TAB PO SCH ×2 (09:10→20:35)
[2017-06-20] MEDS: LISINOPRIL 5 MG TAB PO SCH (09:10)
[2017-06-20] MEDS: glipiZIDE 10 MG TAB PO SCH (09:10)
--- NOTE | 2017-06-20 10:05 | HHI.PR ---
Subjective Remarks The patient was wondering when he would be able to go home. He said he fell last night and hurt his neck. He says it is better. He says his pain is controlled. He has not had a bowel movement in a few days. Discussed with nursing. Objective Vitals Vital Signs Date Time Temp Pulse Resp B/P (MAP) Pulse Ox O2 Delivery O2 Flow Rate FiO2 06/20/17 08:00 96.6 66 18 183/76 (111) 97 06/20/17 05:53 98.1 63 17 196/81 (119) 98 06/20/17 04:53 96.6 79 17 177/75 (109) 97 06/20/17 04:00 98.1 76 17 167/72 (103) 99 06/20/17 00:00 97.8 79 17 147/71 (96) 99 06/19/17 20:00 98.2 82 17 193/77 (115) 99 06/19/17 16:00 97.5 74 16 156/65 (95) 99 06/19/17 12:00 97.8 57 16 149/61 (90) 98 06/19/17 10:11 97 21 I/O 06/19/17 06/19/17 06/19/17 06/20/17 06/20/17 06/20/17 07:00 15:00 23:00 07:00 15:00 23:00 Intake Total 1075 ml 1100 ml 1700 ml 240 ml Output Total 1400 ml 300 ml 800 ml 1000 ml Balance -325 ml 800 ml 900 ml -760 ml Intake Oral 240 ml 600 ml 240 ml IV Total 835 ml 1100 ml 1100 ml Output Urine Total 1350 ml 300 ml 800 ml 1000 ml Drainage Total 50 ml 0 ml 0 ml # Voids 1 # Bowel Movements 0 0 Result Diagram: 06/19/1781906/19/17819 Imaging Last Impressions Soft Tissue Ultrasound 06/16/17 0000 Signed Impressions: Service Date/Time: Friday, June 16, 2017 11:41 - CONCLUSION: Soft tissue edema/swelling without abscess. Will Hart MD Brain MRI 06/16/17 0000 Signed Impressions: Service Date/Time: Friday, June 16, 2017 12:41 - CONCLUSION: 1. No evidence of acute intracranial pathology. No masses are identified. 2. Opacified right maxillary sinus without aggressive features. Davi David MD Chest X-Ray 06/10/17 1153 Signed Impressions: Service Date/Time: May 12:55 - CONCLUSION: No acute disease. Kwaku Vizcaino MD Maxillofacial CT 06/10/17 0000 Signed Impressions: Service Date/Time: , June 10, 2017 14:20 - CONCLUSION: 1. Severe opacification of the right maxillary sinus with thickening of the right maxillary sinus langford suggesting chronic sinus disease. Erosion of the medial wall of the right maxillary sinus. 2. No evidence of fracture. Brian Mendoza MD Head CT 06/10/17 0000 Signed Impressions: Service Date/Time: May 12:19 - CONCLUSION: 1. No acute intracranial abnormality. 2. Opacification of the right maxillary sinus. There is concern for fracture the inferior aspect of the right orbit. CT imaging of the facial bones is warranted. Ramos Ortega MD Objective Remarks GENERAL: This is a well-nourished, well-developed patient, in no apparent distress. SKIN: Warm and dry. NECK: Trachea midline. No JVD or lymphadenopathy. Supple, nontender, no meningeal signs. CARDIOVASCULAR: Distant heart sounds without murmurs, gallops, or rubs. RESPIRATORY: Clear to auscultation. Breath sounds equal bilaterally. No wheezes , rales, or rhonchi. GASTROINTESTINAL: Abdomen protuberant, soft, non-tender, nondistended. No guarding. MUSCULOSKELETAL: Extremities without clubbing, cyanosis, or edema. : Wound vac in place. NEUROLOGICAL: Awake and alert. Able to move all extremities. Nonfocal. Normal speech. PSYCH: Mood and affect appropriate. Procedures I and D left groin abscess with wound vac placement by Dr Porter gen surg Medications and IVs Current Medications Medications (Trade) Dose Ordered Sig/Ishmael Route Start Time Stop Time Status Last Admin (D50w (Vial) Inj) 50 ml UNSCH PRN IV PUSH 06/10/17 14:45 (Glucagon Inj) 1 mg UNSCH PRN OTHER 06/10/17 14:45 (NovoLOG SUPPLEMENTAL SCALE) 1 ACHS SLIDING SCALE SQ 06/10/17 17:00 06/19/17 12:16 Sodium Chloride 1,000 ml @ 100 mls/hr Q10H IV 06/10/17 14:31 06/20/17 09:08 (NS Flush) 2 ml UNSCH PRN IV FLUSH 06/10/17 14:45 (NS Flush) 2 ml BID IV FLUSH 06/10/17 21:00 06/18/17 22:08 (Tylenol) 650 mg Q4H PRN PO 06/10/17 14:45 06/16/17 00:53 (Zofran Inj) 4 mg Q6H PRN IVP 06/10/17 14:45 (Tylenol) 650 mg Q6H PRN PO 06/10/17 14:45 ([place] 5-325 Mg) 1 tab Q4H PRN PO 06/10/17 14:45 06/16/17 19:15 ([place] 7.5-325 Mg) 1 tab Q4H PRN PO 06/10/17 14:45 06/20/17 09:10 (Morphine Inj) 1 mg Q3H PRN IV PUSH 06/10/17 14:45 (Narcan Inj) 0.4 mg UNSCH PRN IV PUSH 06/10/17 14:45 (Yumiko-Colace) 1 tab BID PO 06/10/17 21:00 06/20/17 09:10 (Senokot) 17.2 mg Q12H PRN PO 06/10/17 14:45 (Dulcolax Supp) 10 mg DAILY PRN RECTAL 06/10/17 14:45 (Lactulose Liq) 30 ml DAILY PRN PO 06/10/17 14:45 06/15/17 05:57 (Glucotrol) 20 mg DAILY PO 06/11/17 09:00 06/20/17 09:10 (Apresoline Inj) 10 mg Q6H PRN IV PUSH 06/10/17 16:45 (Catapres) 0.1 mg Q6H PRN PO 06/10/17 16:45 06/19/17 05:06 (Heparin Inj) 5,000 units Q12HR SQ 06/10/17 23:45 06/20/17 09:09 (Levemir Inj) 35 units AC BREAKFAST SQ 06/15/17 07:00 06/20/17 09:09 (Apresoline) 10 mg Q6HR PRN PO 06/15/17 20:45 06/15/17 21:51 Ceftriaxone Sodium 2000 mg/ Sodium Chloride 100 ml @ 200 mls/hr Q24H IV 06/19/17 15:00 06/19/17 15:22 (Flagyl) 500 mg Q8HR PO 06/19/17 15:00 06/20/17 06:15 (Diflucan) 100 mg DAILY PO 06/20/17 09:00 06/20/17 09:09 (Prinivil) 10 mg DAILY PO 06/21/17 09:00 (Norvasc) 5 mg DAILY PO 06/20/17 10:15 UNV A/P Problem List: (1) Sepsis ICD Code: A41.9 - Sepsis, unspecified organism Status: Acute Assessment and Plan Severe sepsis With elevated white count of 20.8, temperature of 101.7, elevated lactic acid level of 2.8, tachycardic with HR 112, elevated RR 30 and renal failure with creatinine of 1.75. Continues to have low-grade fever. Blood cultures negative. Urine culture with yeast. Patient with right maxillary sinus with thickening of the right maxillary sinus langford suggesting chronic sinus disease and erosion of the medial wall of the right maxillary sinus. Consulted ENT for evaluation. Noted with right groin pain, fluid collection, possible abscess. US shows abscess, also had purulent discharge. Consulted wound care. Consulted gen surg. S/P I and D left groin abscess with wound vac placement on 06/17/[address] Porter of gen surg . CXR reviewed and shows no acute cardiopulmonary disease. - antibiotics per ID. Currently on ceftriaxone and Diflucan. - follow up with surgery. Wound vac dressing to be changed 06/20. - pain control with a bowel regimen. Dose of Miralax 06/20. Weakness S/p fall at home. EKG revealing sinus tachycardia with q waves noted in inferior leads, possibly suggesting old infarct. CT head shows opacification of the right maxillary sinus. S/p ENT evaluation. The pt refused a sinus drainage procedure. Had a fall 06/19. - fall precautions. - PT eval/tx. Add OT. ARON Cr improving. - avoid nephrotoxic agents - Improved discontinue IVF - monitor I&Os. - monitor kidney function. - continue lisinopril. HTN BP elevated. - Hydralazine and Clonidine prn with parameters. - increase lisinopril to 10 mg daily. Start amlodipine 5 mg daily. DM, insulin dependent Improving hyperglycemia. - Decreased Levemir to 35 units daily. - continue patient on home Glipizide 20mg daily. - accuchecks. - ISS. - heart healthy diabetic diet. DVT prophylaxis - Bilateral SCD/AMY hose and SQ heparin Discharge Planning Awaiting GS and ID clearance. Will need rehabilitation versus home healthcare. Problem Qualifiers (1) Sepsis: Qualified Codes: A41.9 - Sepsis, unspecified organism Damir Ruano DO Jun 20, 2017 10:05
[2017-06-20] MEDS ORDERED: POLYETHYLENE GLYCOL 17 GM PKG PO ONE (10:30)
[2017-06-20] MEDS: cloNIDine HCL 0.1 MG TAB PO PRN (11:32)
--- NOTE | 2017-06-20 13:32 | HHI.PR ---
Subjective Subjective Notes VAC dressing with leak. Pt tender with dressing change Objective Vitals/I&O Vital Signs Date Time Temp Pulse Resp B/P (MAP) Pulse Ox O2 Delivery O2 Flow Rate FiO2 06/20/17 12:00 98.3 79 18 185/81 (115) 97 06/19/17 10:11 21 06/17/17 13:25 Room Air 06/17/17 12:30 3 Labs Date/Time Source Procedure Growth Status 06/10/17 12:15 Blood Peripheral Aerobic Blood Culture - Final NO GROWTH IN 5 DAYS Complete 06/10/17 12:15 Blood Peripheral Anaerobic Blood Culture - Final NO GROWTH IN 5 DAYS Complete 06/17/17 11:52 Fluid Other Fungal Smear - Final NO FUNGAL ELEMENTS SEEN. Resulted 06/17/17 11:52 Fluid Other Fungal Culture Pending Resulted 06/10/17 12:35 Nasal Aspirate Influenza Types A,B Antigen (MINOO) - Final NEGATIVE FOR FLU A AND B ANTIGEN.... Complete 06/10/17 22:05 Urine Catheterized Urine Urine Culture - Final Petra Glabrata Complete 06/16/17 13:51 Wound Groin Gram Stain - Final Complete 06/16/17 13:51 Wound Culture - Final Escherichia Coli Petra Tropicalis Complete Narrative Exam VAC dressing removed revealing two openings fairly clean, a small amount of exudative material removed from anterior wound. New NS wet to dry dressing placed. Fairly tender, induration around wound remains. A/P Assessment and Plan Postop I and D debridement, VAC for R groin/ buttock abscess. Converted to NS wet to dry dressing due to leaking of wound vac, difficulty of adherence of dressing. Increased pain med for dressing changes. OK for rehab when tolerating po pain meds for dressing changes, otherwise cleared for DC. Davi Lee MD Jun 20, 2017 13:32
[2017-06-20] MEDS: amLODIPine BESYLATE 5 MG TAB PO SCH (13:50)
[2017-06-20] MEDS: cefTRIAXone INJ 2,000 MG in SODIUM CHLORIDE 0.9% INJ 100 ML IV SCH (13:52)
[2017-06-21] VITALS: BP 177/74; PULSE 70; RESP 17; TEMP 97.9; O2SAT 99
[2017-06-21] MEDS: hydrALAZINE HCL 10 MG TAB PO PRN (00:41)
[2017-06-21 01:40] VITALS: BP 173/75; PULSE 76
[2017-06-21 04:00] VITALS: BP 158/73; PULSE 68; RESP 17; TEMP 97.2; O2SAT 99
[2017-06-21] MEDS: metroNIDAZOLE 500 MG TAB PO SCH (04:55)
[2017-06-21] MEDS: ACETAMINOPHEN/HYDROcodone 325 MG/7.5 MG TAB PO PRN ×3 (04:55→16:52)
[2017-06-21] MEDS: SODIUM CHLOR 0.9% 1000 ML INJ 1,000 ML IV SCH (05:04)
[2017-06-21 08:00] VITALS: BP 168/73; PULSE 68; RESP 18; TEMP 97.6; O2SAT 99
[2017-06-21] MEDS: INSULIN ASPART SUPPLEMENTAL SCALE SQ SCH ×2 (08:00→12:00)
[2017-06-21] MEDS: HEPARIN SODIUM - SQ 10,000 UNITS/ML VIAL SQ SCH (08:49)
[2017-06-21] MEDS: glipiZIDE 10 MG TAB PO SCH (08:49)
[2017-06-21] MEDS: FLUCONAZOLE 100 MG TAB PO SCH (08:49)
[2017-06-21] MEDS: DOCUSATE SODIUM 50 MG/SENNA 8.6 MG TAB PO SCH (08:49)
[2017-06-21] MEDS: amLODIPine BESYLATE 5 MG TAB PO SCH (08:50)
[2017-06-21] MEDS: SODIUM CHLORIDE 0.9% FLUSH 10 ML FLUSH IV FLUSH SCH (09:00)
[2017-06-21] MEDS ORDERED: LISINOPRIL 10 MG TAB PO SCH (09:00)
--- NOTE | 2017-06-21 10:40 | HHI.IDPN ---
Subjective Subjective Remarks is a 67 y.o AAM with PMHx of chronic sinusitis never seen by ENT self reports. Also PMHx significant for DM, HTN. He presents to the ED with fever and generalized weakness. Patient reports sudden onset of "not feeling well" this morning with associated weakness and inability to walk resulting in fall. Patient denies any dizziness or lightheadedness prior to fall. He denies any loss of consciousness or injury to the head. Patient denies any fever or chills at home but EMS recorded a temperature of 102.0. Patient denies any recent illness, ill contacts or recent travel. He denies any cuts, bites or open sores. Patient denies any headache, runny nose or cough. Patient denies any recent change in medications. Patient denies any complaints of pain including no chest pain or abdominal pain. He denies any urinary urgency, frequency or dysuria. He denies any diarrhea. He denies any recent antibiotic use. Patient denies any bleeding. Patient denies any history of stroke or VA. In the ED, patient has temperature of 101.7, elevated white count of 20.8 and elevated lactic acid level of 2.8. He is tachycardiac with a HR of 112. Respiratory rate elevated at 30. Troponin was 0.02. Creatinine is elevated at 1.75. CXR shows no acute cardiopulmonary process. EKG with sinus tachycardia. CT head shows opacification of the right maxillary sinus and concern for fracture of the inferior aspect of the right orbit. Followup Facial CT shows severe opacification of the right maxillary sinus with thickening of the right maxillary sinus langford suggesting chronic sinus disease and erosion of the medial wall of the right maxillary sinus. No evidence of fracture. ID consulted for evaluation and Mment of Sepsis, UTI. Overnight events reviewed No fevers No rash No diarrhea Complains of discomfort in the groin area. Antibiotics Ceftriaxone IV flagyl oral diflucan oral Lines Line sites with no e.o infection Past Medical History reviewed Allergies: Coded Allergies: No Known Allergies (Verified , 06/10/17) Objective . Vital Signs Date Time Temp Pulse Resp B/P (MAP) Pulse Ox O2 Delivery O2 Flow Rate FiO2 06/21/17 08:00 97.6 68 18 168/73 (104) 99 06/21/17 05:55 16 06/21/17 04:00 97.2 68 17 158/73 (101) 99 06/21/17 01:40 76 173/75 (107) 06/21/17 00:00 97.9 70 17 177/74 (108) 99 06/20/17 20:00 97.6 65 17 178/75 (109) 100 06/20/17 16:00 97.5 65 17 174/71 (105) 97 06/20/17 12:00 98.3 79 18 185/81 (115) 97 . Laboratory Tests Test 06/21/17 07:28 Creatinine 0.85 MG/DL Estimat Glomerular Filtration Rate 110 ML/MIN Imaging Last Impressions Soft Tissue Ultrasound 06/16/17 0000 Signed Impressions: Service Date/Time: Friday, June 16, 2017 11:41 - CONCLUSION: Soft tissue edema/swelling without abscess. Will Hart MD Brain MRI 06/16/17 0000 Signed Impressions: Service Date/Time: Friday, June 16, 2017 12:41 - CONCLUSION: 1. No evidence of acute intracranial pathology. No masses are identified. 2. Opacified right maxillary sinus without aggressive features. Davi David MD Chest X-Ray 06/10/17 1153 Signed Impressions: Service Date/Time: May 12:55 - CONCLUSION: No acute disease. Kwaku Vizcaino MD Maxillofacial CT 06/10/17 0000 Signed Impressions: Service Date/Time: May 14:20 - CONCLUSION: 1. Severe opacification of the right maxillary sinus with thickening of the right maxillary sinus langford suggesting chronic sinus disease. Erosion of the medial wall of the right maxillary sinus. 2. No evidence of fracture. Brian Mnedoza MD Head CT 06/10/17 0000 Signed Impressions: Service Date/Time: May 12:19 - CONCLUSION: 1. No acute intracranial abnormality. 2. Opacification of the right maxillary sinus. There is concern for fracture the inferior aspect of the right orbit. CT imaging of the facial bones is warranted. Ramos Ortega MD Physical Exam GENERAL: This is a well-nourished, well-developed patient, in no apparent distress. SKIN: No rashes, ecchymoses or lesions. Cool and dry. HEAD: Atraumatic. Normocephalic. No temporal or scalp tenderness. EYES: Pupils equal round and reactive. Extraocular motions intact. No scleral icterus. No injection or drainage. ENT: Nose without bleeding, purulent drainage or septal hematoma. Throat without erythema, tonsillar hypertrophy or exudate. Uvula midline. Airway patent. NECK: Trachea midline. Supple, nontender, no meningeal signs. CARDIOVASCULAR: Regular rate and rhythm without murmurs, gallops, or rubs. RESPIRATORY: Clear to auscultation. Breath sounds equal bilaterally. No wheezes , rales, or rhonchi. GASTROINTESTINAL: Abdomen soft, non-tender, nondistended. No hepato-splenomegaly , or palpable masses. No guarding. MUSCULOSKELETAL: Extremities without clubbing, cyanosis, or edema. No joint tenderness, effusion, or edema noted. No calf tenderness. Negative Homans sign bilaterally. NEUROLOGICAL: Awake and alert. Cranial nerves II through XII intact. Motor and sensory grossly within normal limits. Five out of 5 muscle strength in all muscle groups. Normal speech. Psych cooperative Groin right side with induration, tenderness and discharge noted. IV line sites with no e.o infection Assessment & Plan Remarks Sepsis ongoing right groin abscess. Gram negative chacorta and yeast in wound culture intraop. Right maxillary chronic sinusitis. Rule out mucormycosis. DM as risk factor for mucor. Petra glabrata in urine. Fevers persist despite diflucan. DM uncontrolled. Recs DC Ceftriaxone IV DC flagyl oral DC Diflucan oral. Start oral doxy for 10 days. d.w patient and RN, case work aide. Wound care per surgery. Will sign off please call back if any change in clinical condition or questions. Sherita Yun MD Jun 21, 2017 10:40
[2017-06-21] MEDS: INSULIN DETEMIR 100 UNITS/ML VIAL SQ SCH (11:04)
[2017-06-21] MEDS ORDERED: AMLO5 PO (11:27)
[2017-06-21] MEDS ORDERED: HYDR-3516 PO (11:27)
[2017-06-21] MEDS ORDERED: LISI10TA3 PO (11:27)
--- NOTE | 2017-06-21 11:29 | HHI.DS ---
Discharge Summary Admission Date Jun 10, 2017 at 14:31 Discharge Date: Jun 21, 2017 Admitting Diagnosis SEPSIS (1) Sepsis ICD Code: A41.9 - Sepsis, unspecified organism Status: Acute (2) Abscess of groin, right ICD Code: L02.214 - Cutaneous abscess of groin Diagnosis: Principal (3) Physical deconditioning ICD Code: R53.81 - Other malaise Procedures I and D left groin abscess with wound vac placement by Dr Porter gen surg Brief History - From Admission Written by Rika Lantigua PA-C acting as scribe for Dr. Winters on 06/10/17 at 16:16. This is a 67yo male with a PMHX significant for HTN and IDDM who presents to [facility] ED with complaints of fever and weakness. Patient reports sudden onset of "not feeling well" this morning with associated weakness and inability to walk resulting in fall. Patient denies any dizziness or lightheadedness prior to fall. He denies any loss of consciousness or injury to the head. Patient denies any fever or chills at home but EMS recorded a temperature of 102.0. Patient denies any recent illness, ill contacts or recent travel. He denies any cuts, bites or open sores. Patient denies any headache, runny nose or cough. Patient denies any recent change in medications. Patient denies any complaints of pain including no chest pain or abdominal pain. He denies any urinary urgency, frequency or dysuria. He denies any diarrhea. He denies any recent antibiotic use. Patient denies any bleeding. Patient denies any history of stroke or MS. In the ED, patient has temperature of 101.7, elevated white count of 20.8 and elevated lactic acid level of 2.8. He is tachycardiac with a HR of 112. Respiratory rate elevated at 30. Troponin was 0.02. Creatinine is elevated at 1.75. CXR shows no acute cardiopulmonary process. EKG with sinus tachycardia. CT head shows opacification of the right maxillary sinus and concern for fracture of the inferior aspect of the right orbit. Followup Facial CT shows severe opacification of the right maxillary sinus with thickening of the right maxillary sinus langford suggesting chronic sinus disease and erosion of the medial wall of the right maxillary sinus. No evidence of fracture. CBC/BMP: 06/19/17 0820 06/21/17 0728 Significant Findings Laboratory Tests Test 06/19/17 08:20 06/21/17 07:28 Red Blood Count 3.79 MIL/MM3 (4.50-5.90) Hemoglobin 11.8 GM/DL (13.0-17.0) Hematocrit 35.4 % (39.0-51.0) Monocytes (%) (Auto) 8.8 % (0.0-8.0) Eosinophils (%) (Auto) 4.9 % (0.0-4.0) Eosinophils # (Auto) 0.5 TH/MM3 (0-0.4) Random Glucose 129 MG/DL (74-106) Calcium Level 8.0 MG/DL (8.5-10.1) Chloride Level 108 MEQ/L (98-107) Carbon Dioxide Level 20.3 MEQ/L (21.0-32.0) Imaging Last Impressions Neck CT 06/20/17 0000 Signed Impressions: Service Date/Time: Tuesday, June 20, 2017 05:31 - CONCLUSION: 1. No acute abnormality. Ever Michelle Jr., MD Soft Tissue Ultrasound 06/16/17 0000 Signed Impressions: Service Date/Time: Friday, June 16, 2017 11:41 - CONCLUSION: Soft tissue edema/swelling without abscess. Will Hart MD Brain MRI 06/16/17 0000 Signed Impressions: Service Date/Time: Friday, June 16, 2017 12:41 - CONCLUSION: 1. No evidence of acute intracranial pathology. No masses are identified. 2. Opacified right maxillary sinus without aggressive features. Davi David MD Chest X-Ray 06/10/17 1153 Signed Impressions: Service Date/Time: May 12:55 - CONCLUSION: No acute disease. Kwaku Vizcaino MD Maxillofacial CT 06/10/17 0000 Signed Impressions: Service Date/Time: May 14:20 - CONCLUSION: 1. Severe opacification of the right maxillary sinus with thickening of the right maxillary sinus langford suggesting chronic sinus disease. Erosion of the medial wall of the right maxillary sinus. 2. No evidence of fracture. Brian Mendoza MD Head CT 06/10/17 0000 Signed Impressions: Service Date/Time: May 12:19 - CONCLUSION: 1. No acute intracranial abnormality. 2. Opacification of the right maxillary sinus. There is concern for fracture the inferior aspect of the right orbit. CT imaging of the facial bones is warranted. Ramos Ortega MD PE at Discharge GENERAL: This is a well-nourished, well-developed patient, in no apparent distress. SKIN: Warm and dry. NECK: Trachea midline. No JVD or lymphadenopathy. Supple, nontender, no meningeal signs. CARDIOVASCULAR: Distant heart sounds without murmurs, gallops, or rubs. RESPIRATORY: Clear to auscultation. Breath sounds equal bilaterally. No wheezes , rales, or rhonchi. GASTROINTESTINAL: Abdomen protuberant, soft, non-tender, nondistended. No guarding. MUSCULOSKELETAL: Extremities without clubbing, cyanosis, or edema. : Wound vac in place. NEUROLOGICAL: Awake and alert. Able to move all extremities. Nonfocal. Normal speech. PSYCH: Mood and affect appropriate. Pt update on day of discharge The patient still complained of some neck pain. He requested some pads for it. He had no other acute complaints. Discussed with nursing and case management. Hospital Course Severe sepsis With elevated white count of 20.8, temperature of 101.7, elevated lactic acid level of 2.8, tachycardic with HR 112, elevated RR 30 and renal failure with creatinine of 1.75. Blood cultures were negative. Urine culture grew yeast. Patient with right maxillary sinus with thickening of the right maxillary sinus langford suggestive of chronic sinus disease and erosion of the medial wall of the right maxillary sinus. Consulted ENT for evaluation. The pt refused a sinus drainage procedure. Noted with right groin pain, fluid collection and possible abscess. US shows abscess, also had purulent discharge. The pt was started on antibiotics. Consulted wound care. Consulted general surgery. S/P I and D left groin abscess with wound vac placement on 06/17/17. CXR reviewed and shows no acute cardiopulmonary disease. Wound vac dressing discontinued. Twice daily NS wet to dry dressing changes to the two open wounds in R groin/anterior buttock were recommended. The pt will complete a course of PO doxycycline and will follow up with general surgery as an outpt. He will continue pain control with a bowel regimen. He worked with PT and OT in the hospital. ARON Creatinine improved with fluids. Lisinopril was resumed and increased. He will follow up with his primary care doctor. HTN We increased lisinopril to 10 mg daily and started amlodipine 5 mg daily. DM, insulin dependent The pt will be discharged on Levemir 35 units daily and will continue his home glipizide. He was placed on an insulin sliding scale. Pt Condition on Discharge: Stable Discharge Disposition: Discharge to SNF Discharge Time: > 30 minutes Discharge Instructions DIET: Follow Instructions for: Diabetic Diet Activities you can perform: Weight Bearing as Rico Follow up Referrals: PCP Follow-up - 1 Week Surgical - 1 Week with Shahid Porter MD New Medications: Walker with Front Wheels (Walker with Front Wheels) 1 Mis Mis EA .ROUTE DIRECTED, #1 0 Refills Amlodipine (Norvasc) 5 Mg Tab 5 MG PO DAILY for Blood Pressure Management, #30 TAB Doxycycline Hyclate (Doxycycline Hyclate) 100 Mg Tab 100 MG PO Q12HR for Infection for 10 Days, TAB Sit upright for an hour after taking doxycycline. Hydrocodone-Acetaminophen (Hydrocodone-Acetaminophen) 5-325 mg Tab 1 TAB PO Q4H PRN for PAIN SCALE 1 TO 10, #20 TAB Insulin Detemir Inj (Levemir Inj) 1,000 unit/ 10 ML Vial 30 UNITS SQ AC BREAKFAST for Blood Sugar Management, #30 INJECTION Do not mix with any other Insulin. Lisinopril (Lisinopril) 10 Mg Tab 10 MG PO DAILY for Blood Pressure Management, #30 TAB Continued Medications: Glipizide (Glipizide) 10 Mg Tab 20 MG PO DAILY for Blood Sugar Management, #60 TAB 0 Refills Take 30 minutes before a meal Damir Ruano DO Jun 21, 2017 11:29
[2017-06-21] MEDS ORDERED: LEVEMIR SQ (11:36)
--- NOTE | 2017-06-21 11:43 | HHI.DCPOC ---
Discharge Care Plan Diagnosis: (1) Abscess of groin, right (2) Physical deconditioning (3) Sepsis (4) E. coli infection Goals to Promote Your Health * To prevent worsening of your condition and complications * To maintain your health at the optimal level Directions to Meet Your Goals Take your medications as prescribed Follow your dietary instruction Follow activity as directed Keep your appointments as scheduled Take your immunizations and boosters as scheduled If your symptoms worsen call your PCP, if no PCP go to Urgent Care Center or Emergency Room Smoking is Dangerous to Your Health. Avoid second hand smoke Call the 24-hour hour crisis hotline for domestic abuse at Damir Ruano DO Jun 21, 2017 11:43
[2017-06-21] MEDS ORDERED: LACTULOSE SYRUP 20 GM/30 ML CUP PO ONE (11:45)
[2017-06-21] MEDS ORDERED: DOXY100T PO (11:46)
[2017-06-21 12:00] VITALS: BP 190/81; PULSE 73; RESP 17; TEMP 98.4; O2SAT 99
[2017-06-21] MEDS ORDERED: DOXYCYCLINE HYCLATE 100 MG TAB PO SCH (12:00)
[2017-06-21] MEDS: cloNIDine HCL 0.1 MG TAB PO PRN (12:08)
== END 2017-06-21 17:58 | DRG 854 ==
LOC: NEPD 11:35 → NEDA 14:31 → N07B 18:58
PROVIDERS: ADMIT Hospitalist; ATTEND Hospitalist
PROC: 0JDB0ZZ Extraction of Perineum Subcutaneous Tissue and Fascia, Open Approach (ICD-10-PCS; 2017-06-17)
PROC: 0H99XZX Drainage of Perineum Skin, External Approach, Diagnostic (ICD-10-PCS; principal; 2017-06-17 11:14)
DX: A41.9 Sepsis, unspecified organism (principal); N17.9 Acute kidney failure, unspecified; E11.65 Type 2 diabetes mellitus with hyperglycemia; E11.22 Type 2 diabetes mellitus with diabetic chronic kidney disease; L02.214 Cutaneous abscess of groin; F17.210 Nicotine dependence, cigarettes, uncomplicated; B37.49 Other urogenital candidiasis; I12.9 Hypertensive chronic kidney disease with stage 1 through stage 4 chronic kidney disease, or unspecified chronic kidney disease; R00.0 Tachycardia, unspecified; W19.XXXA Unspecified fall, initial encounter; Z79.4 Long term (current) use of insulin; N18.3 Chronic kidney disease, stage 3 (moderate); E87.6 Hypokalemia; R65.20 Severe sepsis without septic shock; J32.0 Chronic maxillary sinusitis; K59.00 Constipation, unspecified; B96.20 Unspecified Escherichia coli [E. coli] as the cause of diseases classified elsewhere
CPT/HCPCS: 70450; 70486; 70490; 70553; 71010; 76937; 76999; 80048; 80053; 81001; 82550; 82552; 82565; 82948; 83605; 83735; 84484; 85025; 85610; 85730; 87015; 87040; 87070; 87077; 87086; 87102; 87106; 87116; 87186; 87205; 87206; 87804; 93005; 96360; 96361; A9579; J0295; J0696; J0744; J1450; J1644; J1815; J2405; J2543; J3010; J3370; J7030; J7040; J7050; J7121